=== PATIENT | female | born 1945 | race Caucasian/White ===

== ENCOUNTER 2016-09-17 12:04 | Emergency (ER) | payer MEDICARE, MEDICAID ==
[2009-02-26 21:52] VITALS: BP 132/80
[~2016-09-17] VITALS: Ht 144.8 cm; Wt 56.8 kg
[~2016-09-17 12:04] MED LIST: AMBIEN 5MG TABLE5 MG PO; AMITIZA 8MCG8 MCG PO; AMITIZA24 MCG PO; ASPIRIN E.C. 8181 MG PO; ATIVAN0.5 MG PO; ATORVASTATIN PO; BACTRIM 400 MG-1 TAB PO; CARAFATE 1GM1 G PO; CEFTIN 250250 MG/TAB PO; CEFTIN500 MG PO; CRESTOR PO; CRESTOR5 MG PO; DARVOCET-N-101 UDTAB PO; DESYREL 100MG100 MG PO; DESYREL 50MG50 MG PO; DESYREL PO; ESCITALOPRAM PO; FLEXERIL 1010 MG/TAB PO; FLEXERIL10 MG PO; FLEXERIL5 MG PO; GLUCOPHAGE PO; GLUCOPHAGE500 MG/TAB PO; HEART MED; LANTUS100 U/ML SC; LANTUS100 U/ML SQ; LEVAQUIN 2250 MG/TAB PO; LEVAQUIN 750MG750 M1 PO; LEVEMIR SC; LORTAB 5/500 501 TAB PO; MACROBID 1100 MG/CAP PO; METRONIDAZOLE250 MG PO; MOBIC 7.5MG7.5 MG PO; NATURAL E400 IU PO; NEXIUM 20MG20 MG PO; NEXIUM 40MG40 MG PO; NIRAVAM1 MG PO; NORCO 325 MG-51 TAB PO; OMNICEF 300MG300 MG PO; ORAXYL20 MG PO; PERCOCET 325 MG1 TA2 PO; PERCOCET 5/321 UDTAB PO; PERCR 7.5 PO; PULMICORT0.25 MG/2; PULMICORT0.5 MG/21 IH; PYRIDIUM 100MG100 MG PO; PYRIDIUM200 M1 PO; RT SPIRIVA18 MCG IH; SINGULAIR 110 MG/TAB PO; SINGULAIR PO; SINGULAIR10 MG PO; SPIRIVA INH IH; TYLENOL 325MG325 MG PO; ULTRAM 50MG TAB50 MG PO; VALIUM 2MG T2 MG/TAB PO; VENTOLIN0.09 MG IH; VICODIN 5/5001 UDTAB PO; VITAMIN C BUFF500 MG PO; VITAMIN C500 MG PO; VITAMIN E 400 U4001 PO; XANAX .25M0.25 MG/TA PO; XANAX 0.5MG0.5 MG PO; XANAX 1MG1 MG PO; ZITHROMAX 250M250 MG PO; ZOFRAN ODT4 MG PO; ZOFRAN4 M1 PO; ZOFRAN4 MG PO; ZOLPIDEM5 MG PO; [UNRECOGNIZED DRUG - OTHER]
[2016-09-17 12:08] VITALS: BP 140/74; TEMP 98.2
[2016-09-17] MEDS ORDERED: NORCO 325 MG-51 TAB PO (12:37)
[2016-09-17 13:34] LABS: BASO # 0.1 (0.0-0.2); BASO % 1.2 % (0.0-2.0); EOS # 0.1 (0.0-0.7); EOS % 0.8 % (0-4.0); GRAN # 6.7 (1.4-6.5); GRAN % 77.5 % (42.2-75.2); HEMATOCRIT 43.2 % (37.0-47.0); HEMOGLOBIN 13.8 g/dl (12.5-16.0); LYMPH # 1.3 (1.2-3.4); LYMPH % 14.7 % (20.0-51.0); MEAN CELL VOLUME 89 fl (80.0-100.0); MEAN CORPUSCULAR HEMOGLOBIN 29 pg (27.0-31.0); MEAN CORPUSCULAR HGB CONC 32 g/dl (33.0-37.0); MEAN PLATELET VOLUME 9.1 fl (7.4-10.4); MONO # 0.5 (0.1-0.6); MONO % 5.6 % (1.7-9.3); PLATELET COUNT 340 K/mm3 (130-400); RED BLOOD COUNT 4.85 M/mm3 (4.10-5.30); REDCELL DISTRIBUTION WIDTH-CV 12.8 % (11.5-14.5); WHITE BLOOD COUNT 8.7 K/mm3 (4.8-10.8)
[2016-09-17 13:51] LABS: ADJUSTED CALCIUM 9.9 mg/dL (8.4-10.2); BILIRUBIN,TOTAL 0.7 mg/dL (0.0-1.0); CALCIUM 9.9 mg/dL (8.4-10.2); CREATININE, serum 1.05 mg/dL (0.52-1.25); POTASSIUM 4.2 mmol/L (3.4-5.0); TOTAL PROTEIN 7.5 gm/dL (6.4-8.2)
[2016-09-17 15:30] LABS: PH 6 (5-8); SQUAMOUS EPITHELIAL 0-2 /hpf; URINE APPEARANCE Clear; URINE BACTERIA None Seen /hpf; URINE BILIRUBIN Negative (NEGATIVE); URINE BLOOD Negative (NEGATIVE); URINE COLOR Straw; URINE GLUCOSE Negative (NEGATIVE); URINE KETONE Negative (NEGATIVE); URINE RBC 0-2 /hpf; URINE UROBILINOGEN Negative (NEGATIVE); URINE WBC 0-2 /hpf
[2016-09-17 16:00] VITALS: PULSE 91
== END 2016-09-17 16:02 | disposition home or self-care (01) ==
LOC: COL.ER 12:04
PROVIDERS: Nurse Practitioner
DX: R10.84 Generalized abdominal pain (principal); E11.9 Type 2 diabetes mellitus without complications; Z79.84 Long term (current) use of oral hypoglycemic drugs; J44.9 Chronic obstructive pulmonary disease, unspecified; Z87.891 Personal history of nicotine dependence; F41.9 Anxiety disorder, unspecified; F32.9 Major depressive disorder, single episode, unspecified

== ENCOUNTER 2016-09-26 14:16 | Emergency (ER) | payer MEDICARE, MEDICAID ==
[2009-02-26 21:52] VITALS: BP 132/80
[~2016-09-26] VITALS: Ht 144.8 cm; Wt 58.6 kg
[2016-09-26 14:17] VITALS: TEMP 98.7
[2016-09-26 15:54] VITALS: BP 139/73; PULSE 79
== END 2016-09-26 15:54 | disposition home or self-care (01) ==
LOC: COL.ER 14:16
DX: R00.0 Tachycardia, unspecified (principal); F41.9 Anxiety disorder, unspecified; E11.9 Type 2 diabetes mellitus without complications; Z79.4 Long term (current) use of insulin

== ENCOUNTER 2016-10-03 13:55 | Emergency (ER) | payer MEDICARE, MEDICAID ==
[2009-02-26 21:52] VITALS: BP 132/80
[~2016-10-03] VITALS: Ht 144.8 cm; Wt 58.2 kg
[2016-10-03 14:08] VITALS: TEMP 98.3
[2016-10-03 15:51] LABS: BASO # 0.1 (0.0-0.2); BASO % 1.2 % (0.0-2.0); EOS # 0.1 (0.0-0.7); EOS % 0.9 % (0-4.0); GRAN # 7.2 (1.4-6.5); HEMATOCRIT 44.8 % (37.0-47.0); HEMOGLOBIN 14.3 g/dl (12.5-16.0); LYMPH # 1.3 (1.2-3.4); LYMPH % 14.1 % (20.0-51.0); MEAN CELL VOLUME 90 fl (80.0-100.0); MEAN CORPUSCULAR HEMOGLOBIN 29 pg (27.0-31.0); MEAN CORPUSCULAR HGB CONC 32 g/dl (33.0-37.0); MEAN PLATELET VOLUME 9.1 fl (7.4-10.4); MONO # 0.5 (0.1-0.6); MONO % 5.5 % (1.7-9.3); PLATELET COUNT 331 K/mm3 (130-400); RED BLOOD COUNT 4.98 M/mm3 (4.10-5.30); REDCELL DISTRIBUTION WIDTH-CV 12.6 % (11.5-14.5); WHITE BLOOD COUNT 9.3 K/mm3 (4.8-10.8)
[2016-10-03 15:55] LABS: PH 7 (5-8); SQUAMOUS EPITHELIAL None Seen /hpf; URINE APPEARANCE Clear; URINE BACTERIA None Seen /hpf; URINE BILIRUBIN Negative (NEGATIVE); URINE BLOOD Negative (NEGATIVE); URINE COLOR Colorless; URINE GLUCOSE Negative (NEGATIVE); URINE KETONE Negative (NEGATIVE); URINE RBC 0-2 /hpf; URINE UROBILINOGEN Negative (NEGATIVE); URINE WBC 0-2 /hpf
[2016-10-03 16:01] LABS: ADJUSTED CALCIUM 9.5 mg/dL (8.4-10.2); ALANINE AMINOTRANSFERASE 38 U/L (9-52); ALBUMIN 4.1 gm/dL (3.5-5.0); ALKALINE PHOSPHATASE 136 U/L (50-136); ANION GAP 8 mmol/L (7-16); BILIRUBIN,TOTAL 0.8 mg/dL (0.0-1.0); BLOOD UREA NITROGEN 10 mg/dL (7-17); CALCIUM 9.6 mg/dL (8.4-10.2); CARBON DIOXIDE 29 mmol/L (22-30); CHLORIDE 102 mmol/L (98-107); CREATININE, serum 1.07 mg/dL (0.52-1.25); GLUCOSE 99 mg/dL (74-106); MAGNESIUM 2.2 mg/dL (1.6-2.3); SODIUM 139 mmol/L (137-145); TOTAL PROTEIN 7.8 gm/dL (6.4-8.2)
[2016-10-03 16:18] LABS: TROPONIN-I < 0.012 ng/mL (0.000-0.034)
[2016-10-03 16:52] VITALS: BP 164/90; PULSE 80
== END 2016-10-03 17:00 | disposition home or self-care (01) ==
LOC: COL.ER 13:55
PROVIDERS: Emergency Medicine
DX: F41.9 Anxiety disorder, unspecified (principal); F32.9 Major depressive disorder, single episode, unspecified; E11.9 Type 2 diabetes mellitus without complications; R42 Dizziness and giddiness; R11.0 Nausea

== ENCOUNTER 2016-10-04 19:11 | Emergency (ER) | payer MEDICARE, MEDICAID ==
[2009-02-26 21:52] VITALS: BP 132/80
[~2016-10-04] VITALS: Ht 144.8 cm; Wt 58.6 kg
[~2016-10-04 19:11] MED LIST changes: -ANUSOL HC CREAM30 GM TP; -ATARAX 10MG10 MG/TAB PO; -ATARAX 25MG25 MG/TAB PO; -BENADRYL ITCH28.3 G1 TP; -BENADRYL25 M2 PO; -CIPRO 500MG TA500 MG PO; -CLARITIN 1010 MG/TAB PO; -DOXYCYCLINE 10100 MG PO; -NITROSTAT0.3 MG SL; -PREDNISONE20 MG PO; -PRILOSEC 20MG20 MG PO; -VITAMIN D 1001000 IU PO; -VITAMIN D31000 IU PO
[2016-10-04 19:15] VITALS: TEMP 98.6
[2016-10-04 19:46] VITALS: BP 155/62; PULSE 80
== END 2016-10-04 19:46 | disposition home or self-care (01) ==
LOC: COL.ER 19:11
DX: G43.909 Migraine, unspecified, not intractable, without status migrainosus (principal); E11.9 Type 2 diabetes mellitus without complications; Z79.4 Long term (current) use of insulin
CPT/HCPCS: J1885; J2550

== ENCOUNTER → 2016-10-04 | Emergency (ER) | payer MEDICARE, MEDICAID ==
[2009-02-26 21:52] VITALS: BP 132/80
[~2016-10-04] VITALS: Ht 144.8 cm; Wt 58.2 kg
[~2016-10-04] MED LIST changes: +ANUSOL HC CREAM30 GM TP; +ATARAX 10MG10 MG/TAB PO; +ATARAX 25MG25 MG/TAB PO; +BENADRYL ITCH28.3 G1 TP; +BENADRYL25 M2 PO; +CIPRO 500MG TA500 MG PO; +CLARITIN 1010 MG/TAB PO; +DOXYCYCLINE 10100 MG PO; +NITROSTAT0.3 MG SL; +PREDNISONE20 MG PO; +PRILOSEC 20MG20 MG PO; +VITAMIN D 1001000 IU PO; +VITAMIN D31000 IU PO
[2016-10-04 12:37] VITALS: BP 160/87; PULSE 87
== END | disposition home or self-care (01) ==
LOC: COL.ER 07:16
DX: G89.29 Other chronic pain (principal); F41.9 Anxiety disorder, unspecified; M54.89 Other dorsalgia; E11.9 Type 2 diabetes mellitus without complications; I10 Essential (primary) hypertension; Z87.891 Personal history of nicotine dependence; Z79.4 Long term (current) use of insulin
CPT/HCPCS: J1885

== ENCOUNTER 2016-10-15 16:04 | Emergency (ER) | payer MEDICARE, MEDICAID ==
[2009-02-26 21:52] VITALS: BP 132/80
[~2016-10-15] VITALS: Ht 144.8 cm; Wt 58.2 kg
[2016-10-15 16:08] VITALS: TEMP 97
[2016-10-15 16:51] LABS: PH 6 (5-8); SQUAMOUS EPITHELIAL 0-2 /hpf; URINE APPEARANCE Cloudy; URINE BACTERIA Rare /hpf; URINE BILIRUBIN Negative (NEGATIVE); URINE BLOOD 2+ (NEGATIVE); URINE COLOR Yellow; URINE GLUCOSE Negative (NEGATIVE); URINE KETONE Negative (NEGATIVE); URINE RBC 0-2 /hpf; URINE UROBILINOGEN Negative (NEGATIVE); URINE WBC >50 /hpf
[2016-10-15 17:52] LABS: BASO # 0.1 (0.0-0.2); BASO % 0.9 % (0.0-2.0); EOS # 0.2 (0.0-0.7); EOS % 1.9 % (0-4.0); GRAN # 7.6 (1.4-6.5); GRAN % 73.2 % (42.2-75.2); HEMOGLOBIN 13.5 g/dl (12.5-16.0); LYMPH # 1.7 (1.2-3.4); LYMPH % 16.6 % (20.0-51.0); MEAN CELL VOLUME 90 fl (80.0-100.0); MEAN CORPUSCULAR HEMOGLOBIN 29 pg (27.0-31.0); MEAN CORPUSCULAR HGB CONC 32 g/dl (33.0-37.0); MONO # 0.7 (0.1-0.6); PLATELET COUNT 321 K/mm3 (130-400); RED BLOOD COUNT 4.69 M/mm3 (4.10-5.30); REDCELL DISTRIBUTION WIDTH-CV 12.6 % (11.5-14.5); WHITE BLOOD COUNT 10.3 K/mm3 (4.8-10.8)
[2016-10-15 18:09] LABS: ADJUSTED CALCIUM 9.4 mg/dL (8.4-10.2); ALBUMIN 3.7 gm/dL (3.5-5.0); BILIRUBIN,TOTAL 0.7 mg/dL (0.0-1.0); C-REACTIVE PROTEIN 0.9 mg/dL (0.0-0.9); CALCIUM 9.2 mg/dL (8.4-10.2); CREATININE, serum 1.18 mg/dL (0.52-1.25); POTASSIUM 3.8 mmol/L (3.4-5.0); TOTAL PROTEIN 7.1 gm/dL (6.4-8.2)
[2016-10-15] MEDS ORDERED: PYRIDIUM200 M1 PO (18:54)
[2016-10-15] MEDS ORDERED: OMNICEF 300MG300 MG PO (18:54)
[2016-10-15 19:34] VITALS: BP 132/70; PULSE 80
== END 2016-10-15 19:35 | disposition home or self-care (01) ==
LOC: COL.ER 16:04
PROVIDERS: Emergency Medicine
DX: R10.31 Right lower quadrant pain (principal); N39.0 Urinary tract infection, site not specified; B96.20 Unspecified Escherichia coli [E. coli] as the cause of diseases classified elsewhere; E11.9 Type 2 diabetes mellitus without complications; Z79.4 Long term (current) use of insulin
CPT/HCPCS: J0696; J2270; J2405; J7030; Q9967

== ENCOUNTER 2016-10-17 12:08 | Emergency (ER) | payer MEDICARE, MEDICAID ==
[2009-02-26 21:52] VITALS: BP 132/80
[~2016-10-17] VITALS: Ht 144.8 cm; Wt 59.0 kg
[2016-10-17 12:13] VITALS: BP 131/59; PULSE 91; TEMP 98.4
== END 2016-10-17 13:50 | disposition home or self-care (01) ==
LOC: COL.ER 12:08
DX: M17.12 Unilateral primary osteoarthritis, left knee (principal); E11.9 Type 2 diabetes mellitus without complications; Z79.4 Long term (current) use of insulin

== ENCOUNTER 2016-10-25 11:38 | Emergency (ER) | payer MEDICARE, MEDICAID ==
[2009-02-26 21:52] VITALS: BP 132/80
[~2016-10-25] VITALS: Ht 144.8 cm; Wt 58.2 kg
[2016-10-25 11:39] VITALS: TEMP 98.3
[2016-10-25 12:23] LABS: BASO # 0.1 (0.0-0.2); BASO % 1.1 % (0.0-2.0); EOS # 0.1 (0.0-0.7); EOS % 1.4 % (0-4.0); GRAN # 6.5 (1.4-6.5); GRAN % 76.9 % (42.2-75.2); HEMATOCRIT 45.3 % (37.0-47.0); HEMOGLOBIN 14.5 g/dl (12.5-16.0); LYMPH # 1.3 (1.2-3.4); LYMPH % 14.9 % (20.0-51.0); MEAN CELL VOLUME 90 fl (80.0-100.0); MEAN CORPUSCULAR HEMOGLOBIN 29 pg (27.0-31.0); MEAN CORPUSCULAR HGB CONC 32 g/dl (33.0-37.0); MEAN PLATELET VOLUME 9.1 fl (7.4-10.4); MONO # 0.5 (0.1-0.6); MONO % 5.5 % (1.7-9.3); PLATELET COUNT 333 K/mm3 (130-400); RED BLOOD COUNT 5.04 M/mm3 (4.10-5.30); REDCELL DISTRIBUTION WIDTH-CV 12.8 % (11.5-14.5); WHITE BLOOD COUNT 8.4 K/mm3 (4.8-10.8)
[2016-10-25 12:37] LABS: ADJUSTED CALCIUM 9.7 mg/dL (8.4-10.2); ALANINE AMINOTRANSFERASE 24 U/L (9-52); ALBUMIN 3.9 gm/dL (3.5-5.0); ALKALINE PHOSPHATASE 116 U/L (50-136); ANION GAP 8 mmol/L (7-16); BILIRUBIN,TOTAL 0.8 mg/dL (0.0-1.0); BLOOD UREA NITROGEN 10 mg/dL (7-17); CALCIUM 9.6 mg/dL (8.4-10.2); CARBON DIOXIDE 32 mmol/L (22-30); CHLORIDE 100 mmol/L (98-107); CREATININE, serum 0.97 mg/dL (0.52-1.25); GLUCOSE 172 mg/dL (74-106); LIPASE 15 U/L (23-300); POTASSIUM 4.2 mmol/L (3.4-5.0); SODIUM 139 mmol/L (137-145); TOTAL PROTEIN 7.5 gm/dL (6.4-8.2)
[2016-10-25 12:54] LABS: TROPONIN-I < 0.012 ng/mL (0.000-0.034)
[2016-10-25 13:01] LABS: B-TYPE NATRIURETIC PEPTIDE 100 pg/mL (0-125)
[2016-10-25] MEDS ORDERED: CARAFATE 1GM1 G PO (13:31)
[2016-10-25 14:40] VITALS: BP 150/84; PULSE 96
[2016-10-26] MEDS ORDERED: VITAMIN D31000 IU PO (08:35)
[2016-10-26] MEDS ORDERED: NITROSTAT0.3 MG SL (13:20)
== END 2016-10-25 15:14 | disposition home or self-care (01) ==
LOC: COL.ER 11:38
PROVIDERS: Emergency Medicine
DX: R10.13 Epigastric pain (principal); R07.89 Other chest pain; K21.9 Gastro-esophageal reflux disease without esophagitis; E11.9 Type 2 diabetes mellitus without complications; J44.9 Chronic obstructive pulmonary disease, unspecified

== ENCOUNTER 2016-10-26 08:06 | Emergency (ER) | payer MEDICARE, MEDICAID ==
[2009-02-26 21:52] VITALS: BP 132/80
[~2016-10-26] VITALS: Ht 22.9 cm; Wt 58.2 kg
[2016-10-26 08:19] VITALS: BP 139/64
[2016-10-26] MEDS ORDERED: VITAMIN D31000 IU PO (08:35)
[2016-10-26 09:00] LABS: HEMATOCRIT 43.4 % (37.0-47.0); MEAN CELL VOLUME 89 fl (80.0-100.0); MEAN CORPUSCULAR HEMOGLOBIN 29 pg (27.0-31.0); MEAN CORPUSCULAR HGB CONC 32 g/dl (33.0-37.0); MEAN PLATELET VOLUME 8.9 fl (7.4-10.4); PLATELET COUNT 272 K/mm3 (130-400); RED BLOOD COUNT 4.86 M/mm3 (4.10-5.30); REDCELL DISTRIBUTION WIDTH-CV 12.6 % (11.5-14.5); WHITE BLOOD COUNT 11.9 K/mm3 (4.8-10.8)
[2016-10-26 09:08] LABS: ADD PATHOLOGY DIFF REVIEW NO
[2016-10-26 09:34] LABS: C-REACTIVE PROTEIN 0.8 mg/dL (0.0-0.9)
[2016-10-26 09:41] LABS: TROPONIN-I 0.029 ng/mL (0.000-0.034)
[2016-10-26 10:03] LABS: BAND 6 % (0-10); NEUTROPHILS 85 % (42.0-75.2); PLATELET ESTIMATE NORMAL (NORMAL); TOTAL CELLS COUNTED 100
[2016-10-26] MEDS ORDERED: NITROSTAT0.3 MG SL (13:20)
[2016-10-26 13:40] VITALS: PULSE 94
== END 2016-10-26 13:40 | disposition home or self-care (01) ==
LOC: COL.ER 08:06
PROVIDERS: Emergency Medicine
DX: R00.2 Palpitations (principal); R07.9 Chest pain, unspecified; I10 Essential (primary) hypertension; E11.9 Type 2 diabetes mellitus without complications; Z87.891 Personal history of nicotine dependence

== ENCOUNTER 2016-11-05 18:37 | Emergency (ER) | payer MEDICARE, MEDICAID ==
[2009-02-26 21:52] VITALS: BP 132/80
[~2016-11-05] VITALS: Ht 144.8 cm; Wt 58.6 kg
[~2016-11-05 18:37] MED LIST changes: +NITROSTAT0.3 MG SL; +VITAMIN D31000 IU PO
[2016-11-05 18:42] VITALS: TEMP 97
[2016-11-05 20:04] VITALS: BP 164/71; PULSE 85
== END 2016-11-05 20:04 | disposition home or self-care (01) ==
LOC: COL.ER 18:37
DX: R00.2 Palpitations (principal); I25.10 Atherosclerotic heart disease of native coronary artery without angina pectoris; E11.9 Type 2 diabetes mellitus without complications; F41.9 Anxiety disorder, unspecified; L29.9 Pruritus, unspecified; M54.9 Dorsalgia, unspecified; Z79.4 Long term (current) use of insulin

== ENCOUNTER 2016-11-06 09:52 | Emergency (ER) | payer MEDICARE, MEDICAID ==
[2009-02-26 21:52] VITALS: BP 132/80
[~2016-11-06] VITALS: Ht 147.3 cm; Wt 58.2 kg
[2016-11-06 10:01] VITALS: PULSE 84; TEMP 98.3
[2016-11-06 10:38] LABS: PH 6 (5-8); SQUAMOUS EPITHELIAL 0-2 /hpf; URINE APPEARANCE Clear; URINE BACTERIA None Seen /hpf; URINE BILIRUBIN Negative (NEGATIVE); URINE BLOOD Negative (NEGATIVE); URINE COLOR Straw; URINE GLUCOSE Negative (NEGATIVE); URINE KETONE Negative (NEGATIVE); URINE RBC 0-2 /hpf; URINE UROBILINOGEN Negative (NEGATIVE); URINE WBC 0-2 /hpf
[2016-11-06 11:20] LABS: BASO # 0.1 (0.0-0.2); BASO % 1.4 % (0.0-2.0); EOS # 0.2 (0.0-0.7); EOS % 2.2 % (0-4.0); GRAN % 69.7 % (42.2-75.2); HEMATOCRIT 41.8 % (37.0-47.0); HEMOGLOBIN 13.4 g/dl (12.5-16.0); LYMPH # 1.4 (1.2-3.4); LYMPH % 20.1 % (20.0-51.0); MEAN CELL VOLUME 90 fl (80.0-100.0); MEAN CORPUSCULAR HEMOGLOBIN 29 pg (27.0-31.0); MEAN CORPUSCULAR HGB CONC 32 g/dl (33.0-37.0); MEAN PLATELET VOLUME 8.8 fl (7.4-10.4); MONO # 0.5 (0.1-0.6); MONO % 6.5 % (1.7-9.3); PLATELET COUNT 313 K/mm3 (130-400); RED BLOOD COUNT 4.63 M/mm3 (4.10-5.30); REDCELL DISTRIBUTION WIDTH-CV 12.7 % (11.5-14.5); WHITE BLOOD COUNT 7.1 K/mm3 (4.8-10.8)
[2016-11-06 11:57] VITALS: BP 139/67
== END 2016-11-06 12:01 | disposition home or self-care (01) ==
LOC: COL.ER 09:52
PROVIDERS: Emergency Medicine
DX: R10.31 Right lower quadrant pain (principal); R10.32 Left lower quadrant pain; G89.29 Other chronic pain; E11.9 Type 2 diabetes mellitus without complications; I10 Essential (primary) hypertension

== ENCOUNTER 2016-11-11 10:13 | Emergency (ER) | payer MEDICARE, MEDICAID ==
[2009-02-26 21:52] VITALS: BP 132/80
[~2016-11-11] VITALS: Ht 144.8 cm; Wt 58.6 kg
[2016-11-11 10:16] VITALS: TEMP 97.7
[2016-11-11 11:17] VITALS: BP 157/86; PULSE 93
== END 2016-11-11 11:17 | disposition home or self-care (01) ==
LOC: COL.ER 10:13
DX: R10.31 Right lower quadrant pain (principal); R10.32 Left lower quadrant pain; R19.7 Diarrhea, unspecified; E11.9 Type 2 diabetes mellitus without complications; Z79.84 Long term (current) use of oral hypoglycemic drugs; I10 Essential (primary) hypertension; Z87.891 Personal history of nicotine dependence; G89.29 Other chronic pain

== ENCOUNTER 2016-11-20 11:04 | Emergency (ER) | payer MEDICARE, MEDICAID ==
[2009-02-26 21:52] VITALS: BP 132/80
[~2016-11-20] VITALS: Ht 144.8 cm; Wt 58.2 kg
[2016-11-20 11:20] VITALS: BP 168/80; PULSE 87; TEMP 98.2
== END 2016-11-20 12:43 | disposition home or self-care (01) ==
LOC: COL.ER 11:04
DX: R21 Rash and other nonspecific skin eruption (principal); L29.9 Pruritus, unspecified; E11.9 Type 2 diabetes mellitus without complications; Z79.4 Long term (current) use of insulin

== ENCOUNTER 2016-11-20 22:52 | Emergency (ER) | payer MEDICARE, MEDICAID ==
[2009-02-26 21:52] VITALS: BP 132/80
[~2016-11-20] VITALS: Ht 170.2 cm; Wt 58.6 kg
[2016-11-20 23:05] VITALS: BP 170/68; TEMP 97.8
[2016-11-20 23:30] VITALS: PULSE 66
== END 2016-11-20 23:32 | disposition home or self-care (01) ==
LOC: COL.ER 22:52
DX: L25.8 Unspecified contact dermatitis due to other agents (principal); E11.9 Type 2 diabetes mellitus without complications; I10 Essential (primary) hypertension; Z87.891 Personal history of nicotine dependence; Z79.4 Long term (current) use of insulin

== ENCOUNTER 2016-11-23 11:35 | Emergency (ER) | payer MEDICARE, MEDICAID ==
[2009-02-26 21:52] VITALS: BP 132/80
[~2016-11-23] VITALS: Ht 144.8 cm; Wt 58.6 kg
[2016-11-23 11:45] VITALS: TEMP 98.3
[2016-11-23 12:48] LABS: BASO # 0.1 (0.0-0.2); BASO % 1.2 % (0.0-2.0); EOS # 0.1 (0.0-0.7); EOS % 1.4 % (0-4.0); GRAN % 73.6 % (42.2-75.2); HEMATOCRIT 43.1 % (37.0-47.0); HEMOGLOBIN 13.9 g/dl (12.5-16.0); LYMPH # 1.6 (1.2-3.4); LYMPH % 17.1 % (20.0-51.0); MEAN CELL VOLUME 89 fl (80.0-100.0); MEAN CORPUSCULAR HEMOGLOBIN 29 pg (27.0-31.0); MEAN CORPUSCULAR HGB CONC 32 g/dl (33.0-37.0); MONO # 0.6 (0.1-0.6); MONO % 6.4 % (1.7-9.3); PLATELET COUNT 310 K/mm3 (130-400); RED BLOOD COUNT 4.83 M/mm3 (4.10-5.30); REDCELL DISTRIBUTION WIDTH-CV 12.9 % (11.5-14.5); WHITE BLOOD COUNT 9.5 K/mm3 (4.8-10.8)
[2016-11-23 13:22] LABS: ADJUSTED CALCIUM 10.2 mg/dL (8.4-10.2); BILIRUBIN,TOTAL 0.7 mg/dL (0.0-1.0); CALCIUM 10.2 mg/dL (8.4-10.2); CREATININE, serum 0.94 mg/dL (0.52-1.25); POTASSIUM 4.7 mmol/L (3.4-5.0); TOTAL PROTEIN 7.5 gm/dL (6.4-8.2)
[2016-11-23 15:33] VITALS: BP 144/78; PULSE 86
== END 2016-11-23 15:44 | disposition home or self-care (01) ==
LOC: COL.ER 11:35
PROVIDERS: Family Medicine
DX: R07.9 Chest pain, unspecified (principal); F41.9 Anxiety disorder, unspecified; R21 Rash and other nonspecific skin eruption; I10 Essential (primary) hypertension; E11.9 Type 2 diabetes mellitus without complications; Z79.4 Long term (current) use of insulin

== ENCOUNTER 2016-11-24 10:25 | Emergency (ER) | payer MEDICARE, MEDICAID ==
[2009-02-26 21:52] VITALS: BP 132/80
[~2016-11-24] VITALS: Ht 144.8 cm; Wt 58.6 kg
[2016-11-24 13:34] VITALS: BP 169/76; PULSE 91
== END 2016-11-24 13:35 | disposition home or self-care (01) ==
LOC: COL.ER 10:25
DX: R07.89 Other chest pain (principal); R53.81 Other malaise

== ENCOUNTER 2016-11-27 22:18 | Emergency (ER) | payer MEDICARE, MEDICAID ==
[2009-02-26 21:52] VITALS: BP 132/80
[~2016-11-27] VITALS: Ht 144.8 cm; Wt 58.6 kg
[2016-11-27 22:42] VITALS: BP 159/77; TEMP 97.6
[2016-11-28] MEDS ORDERED: ATARAX 10MG10 MG/TAB PO (00:34)
[2016-11-28 00:42] VITALS: PULSE 74
== END 2016-11-28 00:41 | disposition home or self-care (01) ==
LOC: COL.ER 22:18
DX: L25.9 Unspecified contact dermatitis, unspecified cause (principal); E11.9 Type 2 diabetes mellitus without complications; I10 Essential (primary) hypertension; Z79.4 Long term (current) use of insulin

== ENCOUNTER 2016-12-12 13:33 | Emergency (ER) | payer MEDICARE, MEDICAID ==
[2009-02-26 21:52] VITALS: BP 132/80
[~2016-12-12] VITALS: Ht 144.8 cm; Wt 58.2 kg
[~2016-12-12 13:33] MED LIST changes: +ATARAX 10MG10 MG/TAB PO
[2016-12-12 16:20] LABS: BASO # 0.1 (0.0-0.2); BASO % 1.4 % (0.0-2.0); EOS # 0.1 (0.0-0.7); EOS % 1.2 % (0-4.0); GRAN # 6.9 (1.4-6.5); GRAN % 76.6 % (42.2-75.2); HEMATOCRIT 48.3 % (37.0-47.0); HEMOGLOBIN 15.4 g/dl (12.5-16.0); LYMPH # 1.3 (1.2-3.4); LYMPH % 14.8 % (20.0-51.0); MEAN CELL VOLUME 90 fl (80.0-100.0); MEAN CORPUSCULAR HEMOGLOBIN 29 pg (27.0-31.0); MEAN CORPUSCULAR HGB CONC 32 g/dl (33.0-37.0); MEAN PLATELET VOLUME 8.7 fl (7.4-10.4); MONO # 0.5 (0.1-0.6); MONO % 5.7 % (1.7-9.3); PLATELET COUNT 356 K/mm3 (130-400); RED BLOOD COUNT 5.37 M/mm3 (4.10-5.30); REDCELL DISTRIBUTION WIDTH-CV 12.8 % (11.5-14.5)
[2016-12-12 16:30] LABS: PH 6 (5-8); SQUAMOUS EPITHELIAL 0-2 /hpf; URINE APPEARANCE Clear; URINE BACTERIA Rare /hpf; URINE BILIRUBIN Negative (NEGATIVE); URINE BLOOD Negative (NEGATIVE); URINE COLOR Straw; URINE GLUCOSE Negative (NEGATIVE); URINE KETONE Negative (NEGATIVE); URINE RBC 0-2 /hpf; URINE UROBILINOGEN Negative (NEGATIVE); URINE WBC 0-2 /hpf
[2016-12-12 16:38] LABS: ADJUSTED CALCIUM 9.5 mg/dL (8.4-10.2); ALANINE AMINOTRANSFERASE 43 U/L (9-52); ALBUMIN 4.5 gm/dL (3.5-5.0); ALKALINE PHOSPHATASE 152 U/L (50-136); ANION GAP 12 mmol/L (7-16); BILIRUBIN,TOTAL 0.7 mg/dL (0.0-1.0); BLOOD UREA NITROGEN 14 mg/dL (7-17); CALCIUM 9.9 mg/dL (8.4-10.2); CARBON DIOXIDE 30 mmol/L (22-30); CHLORIDE 100 mmol/L (98-107); CREATININE, serum 1.04 mg/dL (0.52-1.25); GLUCOSE 110 mg/dL (74-106); LIPASE 37 U/L (23-300); SODIUM 143 mmol/L (137-145)
[2016-12-12 16:52] LABS: C-REACTIVE PROTEIN < 0.5 mg/dL (0.0-0.9); TROPONIN-I < 0.012 ng/mL (0.000-0.034)
[2016-12-12 17:55] VITALS: BP 159/80; PULSE 83; TEMP 97.5
== END 2016-12-12 17:56 | disposition home or self-care (01) ==
LOC: COL.ER 13:33
PROVIDERS: Emergency Medicine
DX: R07.9 Chest pain, unspecified (principal); G89.29 Other chronic pain; I10 Essential (primary) hypertension; E11.9 Type 2 diabetes mellitus without complications; I25.2 Old myocardial infarction; Z87.11 Personal history of peptic ulcer disease; Z79.4 Long term (current) use of insulin

== ENCOUNTER 2016-12-16 20:34 | Emergency (ER) | payer MEDICARE, MEDICAID ==
[2009-02-26 21:52] VITALS: BP 132/80
[~2016-12-16] VITALS: Ht 144.8 cm; Wt 55.9 kg
[2016-12-16 20:35] VITALS: TEMP 98.2
[2016-12-16 20:56] LABS: BASO # 0.1 (0.0-0.2); BASO % 1.1 % (0.0-2.0); EOS # 0.1 (0.0-0.7); EOS % 0.7 % (0-4.0); GRAN # 9.9 (1.4-6.5); GRAN % 81.1 % (42.2-75.2); HEMATOCRIT 41.9 % (37.0-47.0); LYMPH # 1.3 (1.2-3.4); LYMPH % 10.8 % (20.0-51.0); MEAN CELL VOLUME 88 fl (80.0-100.0); MEAN CORPUSCULAR HEMOGLOBIN 29 pg (27.0-31.0); MEAN CORPUSCULAR HGB CONC 33 g/dl (33.0-37.0); MEAN PLATELET VOLUME 8.9 fl (7.4-10.4); MONO # 0.7 (0.1-0.6); PLATELET COUNT 348 K/mm3 (130-400); RED BLOOD COUNT 4.79 M/mm3 (4.10-5.30); REDCELL DISTRIBUTION WIDTH-CV 12.9 % (11.5-14.5); WHITE BLOOD COUNT 12.3 K/mm3 (4.8-10.8)
[2016-12-16 21:06] LABS: ADJUSTED CALCIUM 9.3 mg/dL (8.4-10.2); ALANINE AMINOTRANSFERASE 37 U/L (9-52); ALBUMIN 4.1 gm/dL (3.5-5.0); ALKALINE PHOSPHATASE 129 U/L (50-136); ANION GAP 10 mmol/L (7-16); BILIRUBIN,TOTAL 0.6 mg/dL (0.0-1.0); BLOOD UREA NITROGEN 16 mg/dL (7-17); CALCIUM 9.4 mg/dL (8.4-10.2); CARBON DIOXIDE 27 mmol/L (22-30); CHLORIDE 100 mmol/L (98-107); CREATININE, serum 1.03 mg/dL (0.52-1.25); GLUCOSE 163 mg/dL (74-106); SODIUM 137 mmol/L (137-145); TOTAL PROTEIN 7.1 gm/dL (6.4-8.2)
[2016-12-16 21:19] LABS: TROPONIN-I < 0.012 ng/mL (0.000-0.034)
[2016-12-16 21:58] VITALS: BP 148/79; PULSE 86
== END 2016-12-16 21:58 | disposition home or self-care (01) ==
LOC: COL.ER 20:34
PROVIDERS: Family Medicine
DX: E86.0 Dehydration (principal); F41.9 Anxiety disorder, unspecified; E11.9 Type 2 diabetes mellitus without complications; R07.89 Other chest pain; Z79.4 Long term (current) use of insulin
CPT/HCPCS: J7030

== ENCOUNTER 2016-12-18 13:28 | Emergency (ER) | payer MEDICARE, MEDICAID ==
[2009-02-26 21:52] VITALS: BP 132/80
[~2016-12-18] VITALS: Ht 144.8 cm; Wt 58.2 kg
[2016-12-18 13:30] VITALS: BP 163/90; PULSE 89; TEMP 98.3
== END 2016-12-18 14:09 | disposition home or self-care (01) ==
LOC: COL.ER 13:28
DX: R21 Rash and other nonspecific skin eruption (principal); E11.9 Type 2 diabetes mellitus without complications; Z79.84 Long term (current) use of oral hypoglycemic drugs; F41.9 Anxiety disorder, unspecified; F32.9 Major depressive disorder, single episode, unspecified

== ENCOUNTER 2017-01-01 12:03 | Emergency (ER) | payer MEDICARE, MEDICAID ==
[2009-02-26 21:52] VITALS: BP 132/80
[~2017-01-01] VITALS: Ht 144.8 cm; Wt 58.6 kg
[2017-01-01 12:06] VITALS: TEMP 97.9
[2017-01-01] MEDS ORDERED: CLARITIN 1010 MG/TAB PO (12:25)
[2017-01-01] MEDS ORDERED: BENADRYL25 M2 PO (12:26)
[2017-01-01 12:46] LABS: BASO # 0.1 (0.0-0.2); BASO % 1.2 % (0.0-2.0); EOS # 0.1 (0.0-0.7); EOS % 1.2 % (0-4.0); GRAN # 8.7 (1.4-6.5); GRAN % 81.3 % (42.2-75.2); HEMOGLOBIN 14.3 g/dl (12.5-16.0); LYMPH # 1.2 (1.2-3.4); LYMPH % 11.3 % (20.0-51.0); MEAN CELL VOLUME 90 fl (80.0-100.0); MEAN CORPUSCULAR HEMOGLOBIN 29 pg (27.0-31.0); MEAN CORPUSCULAR HGB CONC 33 g/dl (33.0-37.0); MEAN PLATELET VOLUME 8.8 fl (7.4-10.4); MONO # 0.5 (0.1-0.6); MONO % 4.6 % (1.7-9.3); PLATELET COUNT 325 K/mm3 (130-400); RED BLOOD COUNT 4.91 M/mm3 (4.10-5.30); REDCELL DISTRIBUTION WIDTH-CV 13.3 % (11.5-14.5); WHITE BLOOD COUNT 10.7 K/mm3 (4.8-10.8)
[2017-01-01 12:56] LABS: ADJUSTED CALCIUM 9.5 mg/dL (8.4-10.2); ALANINE AMINOTRANSFERASE 180 U/L (9-52); ALKALINE PHOSPHATASE 107 U/L (50-136); ANION GAP 11 mmol/L (7-16); BILIRUBIN,TOTAL 0.7 mg/dL (0.0-1.0); BLOOD UREA NITROGEN 19 mg/dL (7-17); CALCIUM 9.5 mg/dL (8.4-10.2); CARBON DIOXIDE 31 mmol/L (22-30); CHLORIDE 96 mmol/L (98-107); GLUCOSE 175 mg/dL (74-106); LIPASE 38 U/L (23-300); POTASSIUM 3.7 mmol/L (3.4-5.0); SODIUM 137 mmol/L (137-145)
[2017-01-01 13:08] LABS: TROPONIN-I < 0.012 ng/mL (0.000-0.034)
[2017-01-01 14:03] VITALS: BP 137/75; PULSE 87
== END 2017-01-01 15:05 | disposition home or self-care (01) ==
LOC: COL.ER 12:03
PROVIDERS: Emergency Medicine
DX: R21 Rash and other nonspecific skin eruption (principal); L29.9 Pruritus, unspecified; F41.9 Anxiety disorder, unspecified; R07.9 Chest pain, unspecified; E11.9 Type 2 diabetes mellitus without complications; Z79.84 Long term (current) use of oral hypoglycemic drugs

== ENCOUNTER 2017-01-02 10:09 | Emergency (ER) | payer MEDICARE, MEDICAID ==
[2009-02-26 21:52] VITALS: BP 132/80
[~2017-01-02] VITALS: Ht 144.8 cm; Wt 58.6 kg
[~2017-01-02 10:09] MED LIST changes: +BENADRYL25 M2 PO; +CLARITIN 1010 MG/TAB PO
[2017-01-02 10:12] VITALS: TEMP 97.5
[2017-01-02 10:59] LABS: BASO # 0.1 (0.0-0.2); BASO % 1.3 % (0.0-2.0); EOS # 0.1 (0.0-0.7); EOS % 1.2 % (0-4.0); GRAN % 81.5 % (42.2-75.2); HEMATOCRIT 47.6 % (37.0-47.0); HEMOGLOBIN 15.3 g/dl (12.5-16.0); LYMPH # 1.1 (1.2-3.4); LYMPH % 11.3 % (20.0-51.0); MEAN CELL VOLUME 91 fl (80.0-100.0); MEAN CORPUSCULAR HEMOGLOBIN 29 pg (27.0-31.0); MEAN CORPUSCULAR HGB CONC 32 g/dl (33.0-37.0); MEAN PLATELET VOLUME 8.8 fl (7.4-10.4); MONO # 0.4 (0.1-0.6); MONO % 4.4 % (1.7-9.3); PLATELET COUNT 343 K/mm3 (130-400); RED BLOOD COUNT 5.26 M/mm3 (4.10-5.30); REDCELL DISTRIBUTION WIDTH-CV 13.3 % (11.5-14.5); WHITE BLOOD COUNT 9.8 K/mm3 (4.8-10.8)
[2017-01-02 11:18] LABS: ADJUSTED CALCIUM 9.3 mg/dL (8.4-10.2); ALANINE AMINOTRANSFERASE 198 U/L (9-52); ALBUMIN 4.2 gm/dL (3.5-5.0); ALKALINE PHOSPHATASE 121 U/L (50-136); ANION GAP 10 mmol/L (7-16); BILIRUBIN,TOTAL 0.9 mg/dL (0.0-1.0); BLOOD UREA NITROGEN 17 mg/dL (7-17); CALCIUM 9.5 mg/dL (8.4-10.2); CARBON DIOXIDE 31 mmol/L (22-30); CHLORIDE 97 mmol/L (98-107); CREATININE, serum 0.94 mg/dL (0.52-1.25); GLUCOSE 100 mg/dL (74-106); LIPASE 37 U/L (23-300); POTASSIUM 4.2 mmol/L (3.4-5.0); SODIUM 138 mmol/L (137-145); TOTAL PROTEIN 7.7 gm/dL (6.4-8.2)
[2017-01-02 11:31] LABS: TROPONIN-I < 0.012 ng/mL (0.000-0.034)
[2017-01-02 11:37] LABS: PH 6 (5-8); SQUAMOUS EPITHELIAL 0-2 /hpf; URINE APPEARANCE Clear; URINE BACTERIA None Seen /hpf; URINE BILIRUBIN Negative (NEGATIVE); URINE BLOOD Negative (NEGATIVE); URINE COLOR Straw; URINE GLUCOSE Negative (NEGATIVE); URINE KETONE Negative (NEGATIVE); URINE RBC 0-2 /hpf; URINE UROBILINOGEN Negative (NEGATIVE); URINE WBC 0-2 /hpf
[2017-01-02 12:59] VITALS: BP 145/113; PULSE 80
== END 2017-01-02 13:00 | disposition home or self-care (01) ==
LOC: COL.ER 10:09
PROVIDERS: Emergency Medicine; Physician Assistant
DX: L30.9 Dermatitis, unspecified (principal); Z71.1 Person with feared health complaint in whom no diagnosis is made; R06.02 Shortness of breath; F41.9 Anxiety disorder, unspecified; F03.90 Unspecified dementia, unspecified severity, without behavioral disturbance, psychotic disturbance, mood disturbance, and anxiety; G89.29 Other chronic pain; R51 Headache

== ENCOUNTER 2017-01-13 10:28 | Emergency (ER) | payer MEDICARE, MEDICAID ==
[2009-02-26 21:52] VITALS: BP 132/80
[~2017-01-13] VITALS: Ht 144.8 cm; Wt 58.6 kg
[2017-01-13 10:47] VITALS: BP 170/80; PULSE 96; TEMP 98.2
[2017-01-13] MEDS ORDERED: BENADRYL25 M2 PO (16:07)
== END 2017-01-13 11:57 | disposition home or self-care (01) ==
LOC: COL.ER 10:28
DX: L50.9 Urticaria, unspecified (principal); E11.9 Type 2 diabetes mellitus without complications; Z79.84 Long term (current) use of oral hypoglycemic drugs; I10 Essential (primary) hypertension; F41.9 Anxiety disorder, unspecified; F32.9 Major depressive disorder, single episode, unspecified; Z87.891 Personal history of nicotine dependence

== ENCOUNTER 2017-01-16 19:24 | Emergency (ER) | payer MEDICARE, MEDICAID ==
[2009-02-26 21:52] VITALS: BP 132/80
[~2017-01-16] VITALS: Ht 144.8 cm; Wt 58.6 kg
[2017-01-16 19:32] VITALS: BP 149/68; PULSE 83; TEMP 97.8
[2017-01-17] MEDS ORDERED: ANUSOL HC CREAM30 GM TP (10:08)
[2017-01-17] MEDS ORDERED: BENADRYL ITCH28.3 G1 TP (10:09)
[2017-01-17] MEDS ORDERED: PREDNISONE20 MG PO (10:23)
== END 2017-01-16 20:39 | disposition home or self-care (01) ==
LOC: COL.ER 19:24
DX: M25.512 Pain in left shoulder (principal); R20.0 Anesthesia of skin; M54.9 Dorsalgia, unspecified; G89.29 Other chronic pain; E11.9 Type 2 diabetes mellitus without complications; I10 Essential (primary) hypertension; J44.9 Chronic obstructive pulmonary disease, unspecified; Z79.4 Long term (current) use of insulin; Z87.891 Personal history of nicotine dependence

== ENCOUNTER 2017-01-17 10:00 | Emergency (ER) | payer MEDICARE, MEDICAID ==
[2009-02-26 21:52] VITALS: BP 132/80
[~2017-01-17] VITALS: Ht 144.8 cm; Wt 58.6 kg
[2017-01-17 10:02] VITALS: BP 146/72; PULSE 89
[2017-01-17] MEDS ORDERED: ANUSOL HC CREAM30 GM TP (10:08)
[2017-01-17] MEDS ORDERED: BENADRYL ITCH28.3 G1 TP (10:09)
[2017-01-17] MEDS ORDERED: PREDNISONE20 MG PO (10:23)
[2017-01-17 12:25] LABS: PH 5 (5-8); SQUAMOUS EPITHELIAL None Seen /hpf; URINE APPEARANCE Clear; URINE BACTERIA None Seen /hpf; URINE BILIRUBIN Negative (NEGATIVE); URINE BLOOD Negative (NEGATIVE); URINE COLOR Straw; URINE GLUCOSE Negative (NEGATIVE); URINE KETONE Negative (NEGATIVE); URINE RBC None Seen /hpf; URINE UROBILINOGEN Negative (NEGATIVE); URINE WBC 0-2 /hpf
[2017-01-18] MEDS ORDERED: BENADRYL25 M2 PO (16:18)
== END 2017-01-17 13:05 | disposition home or self-care (01) ==
LOC: COL.ER 10:00
PROVIDERS: Nurse Practitioner
DX: L50.9 Urticaria, unspecified (principal); E11.9 Type 2 diabetes mellitus without complications
CPT/HCPCS: J7512

== ENCOUNTER 2017-01-18 14:28 | Emergency (ER) | payer MEDICARE, MEDICAID ==
[2009-02-26 21:52] VITALS: BP 132/80
[~2017-01-18] VITALS: Ht 144.8 cm; Wt 58.6 kg
[~2017-01-18 14:28] MED LIST changes: +ANUSOL HC CREAM30 GM TP; +BENADRYL ITCH28.3 G1 TP; +PREDNISONE20 MG PO
[2017-01-18 14:31] VITALS: TEMP 99
[2017-01-18 15:42] LABS: HEMATOCRIT 43.8 % (37.0-47.0); HEMOGLOBIN 14.6 g/dl (12.5-16.0); MEAN CELL VOLUME 89 fl (80.0-100.0); MEAN CORPUSCULAR HEMOGLOBIN 30 pg (27.0-31.0); MEAN CORPUSCULAR HGB CONC 33 g/dl (33.0-37.0); MEAN PLATELET VOLUME 8.6 fl (7.4-10.4); PLATELET COUNT 346 K/mm3 (130-400); RED BLOOD COUNT 4.92 M/mm3 (4.10-5.30); REDCELL DISTRIBUTION WIDTH-CV 13.5 % (11.5-14.5); WHITE BLOOD COUNT 17.1 K/mm3 (4.8-10.8)
[2017-01-18 16:02] LABS: ADJUSTED CALCIUM 9.5 mg/dL (8.4-10.2); ALBUMIN 4.2 gm/dL (3.5-5.0); BILIRUBIN,TOTAL 0.8 mg/dL (0.0-1.0); CALCIUM 9.7 mg/dL (8.4-10.2); CREATININE, serum 0.89 mg/dL (0.52-1.25); POTASSIUM 4.7 mmol/L (3.4-5.0); TOTAL PROTEIN 7.6 gm/dL (6.4-8.2)
[2017-01-18 16:05] LABS: ADD PATHOLOGY DIFF REVIEW NO
[2017-01-18 16:11] LABS: BAND 4 % (0-10); NEUTROPHILS 91 % (42.0-75.2); PLATELET ESTIMATE NORMAL (NORMAL); TOTAL CELLS COUNTED 100
[2017-01-18 16:12] LABS: TROPONIN-I 0.016 ng/mL (0.000-0.034)
[2017-01-18] MEDS ORDERED: BENADRYL25 M2 PO (16:18)
[2017-01-18 16:39] VITALS: BP 154/69; PULSE 95
== END 2017-01-18 16:42 | disposition home or self-care (01) ==
LOC: COL.ER 14:28
PROVIDERS: Emergency Medicine
DX: R21 Rash and other nonspecific skin eruption (principal); R06.02 Shortness of breath; E11.9 Type 2 diabetes mellitus without complications; J44.9 Chronic obstructive pulmonary disease, unspecified; Z79.4 Long term (current) use of insulin; I10 Essential (primary) hypertension

== ENCOUNTER 2017-01-22 10:51 | Emergency (ER) | payer MEDICARE, MEDICAID ==
[2009-02-26 21:52] VITALS: BP 132/80
[~2017-01-22] VITALS: Ht 144.8 cm; Wt 58.6 kg
[2017-01-22 10:52] VITALS: BP 156/68; PULSE 102; TEMP 98.2
[2017-01-22] MEDS ORDERED: ATARAX 25MG25 MG/TAB PO (11:52)
== END 2017-01-22 12:16 | disposition home or self-care (01) ==
LOC: COL.ER 10:51
DX: R21 Rash and other nonspecific skin eruption (principal); F41.9 Anxiety disorder, unspecified; E11.9 Type 2 diabetes mellitus without complications; I10 Essential (primary) hypertension; J44.9 Chronic obstructive pulmonary disease, unspecified; Z79.4 Long term (current) use of insulin

== ENCOUNTER 2017-02-01 07:17 | Emergency (ER) | payer MEDICARE, MEDICAID ==
[2009-02-26 21:52] VITALS: BP 132/80
[~2017-02-01] VITALS: Ht 157.5 cm; Wt 54.5 kg
[~2017-02-01 07:17] MED LIST changes: +ATARAX 25MG25 MG/TAB PO
[2017-02-01 07:59] LABS: BASO # 0.1 (0.0-0.2); BASO % 0.9 % (0.0-2.0); EOS # 0.1 (0.0-0.7); EOS % 1.6 % (0-4.0); GRAN % 73.7 % (42.2-75.2); HEMATOCRIT 42.4 % (37.0-47.0); HEMOGLOBIN 13.7 g/dl (12.5-16.0); LYMPH # 1.4 (1.2-3.4); LYMPH % 17.2 % (20.0-51.0); MEAN CELL VOLUME 91 fl (80.0-100.0); MEAN CORPUSCULAR HEMOGLOBIN 30 pg (27.0-31.0); MEAN CORPUSCULAR HGB CONC 32 g/dl (33.0-37.0); MEAN PLATELET VOLUME 9.1 fl (7.4-10.4); MONO # 0.5 (0.1-0.6); MONO % 6.2 % (1.7-9.3); PLATELET COUNT 323 K/mm3 (130-400); RED BLOOD COUNT 4.64 M/mm3 (4.10-5.30); REDCELL DISTRIBUTION WIDTH-CV 13.6 % (11.5-14.5); WHITE BLOOD COUNT 8.1 K/mm3 (4.8-10.8)
[2017-02-01 09:20] LABS: ALANINE AMINOTRANSFERASE 34 U/L (9-52); ALBUMIN 3.7 gm/dL (3.5-5.0); ALKALINE PHOSPHATASE 116 U/L (50-136); ANION GAP 9 mmol/L (7-16); BILIRUBIN,TOTAL 0.6 mg/dL (0.0-1.0); BLOOD UREA NITROGEN 10 mg/dL (7-17); CALCIUM 8.8 mg/dL (8.4-10.2); CARBON DIOXIDE 28 mmol/L (22-30); CHLORIDE 104 mmol/L (98-107); CREATININE, serum 0.94 mg/dL (0.52-1.25); GLUCOSE 133 mg/dL (74-106); LIPASE 30 U/L (23-300); MAGNESIUM 2.2 mg/dL (1.6-2.3); POTASSIUM 4.2 mmol/L (3.4-5.0); SODIUM 141 mmol/L (137-145); TOTAL PROTEIN 6.6 gm/dL (6.4-8.2)
[2017-02-01 09:30] LABS: PH 7 (5-8); SQUAMOUS EPITHELIAL 0-2 /hpf; URINE APPEARANCE Hazy; URINE BACTERIA Rare /hpf; URINE BILIRUBIN Negative (NEGATIVE); URINE BLOOD Negative (NEGATIVE); URINE COLOR Straw; URINE GLUCOSE Negative (NEGATIVE); URINE KETONE Negative (NEGATIVE); URINE RBC 0-2 /hpf; URINE UROBILINOGEN Negative (NEGATIVE); URINE WBC >50 /hpf
[2017-02-01 09:38] LABS: TROPONIN-I < 0.012 ng/mL (0.000-0.034)
[2017-02-01] MEDS ORDERED: CEFTIN500 MG PO (09:38)
[2017-02-01 10:51] VITALS: BP 133/68; PULSE 82; TEMP 97
== END 2017-02-01 10:43 | disposition home or self-care (01) ==
LOC: COL.ER 07:17
PROVIDERS: Emergency Medicine
DX: N39.0 Urinary tract infection, site not specified (principal); B96.20 Unspecified Escherichia coli [E. coli] as the cause of diseases classified elsewhere; J44.9 Chronic obstructive pulmonary disease, unspecified; E11.9 Type 2 diabetes mellitus without complications; I10 Essential (primary) hypertension; M19.90 Unspecified osteoarthritis, unspecified site; K21.9 Gastro-esophageal reflux disease without esophagitis; F41.9 Anxiety disorder, unspecified; F32.9 Major depressive disorder, single episode, unspecified; Z79.4 Long term (current) use of insulin; Z79.84 Long term (current) use of oral hypoglycemic drugs; Z98.51 Tubal ligation status; Z98.890 Other specified postprocedural states; Z93.3 Colostomy status
CPT/HCPCS: J0696; J3360; J7030

== ENCOUNTER 2017-02-04 20:14 | Emergency (ER) | payer MEDICARE, MEDICAID ==
[2009-02-26 21:52] VITALS: BP 132/80
[~2017-02-04] VITALS: Ht 157.5 cm; Wt 59.5 kg
[2017-02-04 20:18] VITALS: TEMP 98.6
[2017-02-04 20:45] LABS: BASO # 0.1 (0.0-0.2); EOS # 0.2 (0.0-0.7); EOS % 1.5 % (0-4.0); GRAN # 7.8 (1.4-6.5); GRAN % 77.4 % (42.2-75.2); HEMATOCRIT 39.8 % (37.0-47.0); LYMPH # 1.4 (1.2-3.4); LYMPH % 13.7 % (20.0-51.0); MEAN CELL VOLUME 90 fl (80.0-100.0); MEAN CORPUSCULAR HEMOGLOBIN 29 pg (27.0-31.0); MEAN CORPUSCULAR HGB CONC 33 g/dl (33.0-37.0); MEAN PLATELET VOLUME 8.9 fl (7.4-10.4); MONO # 0.6 (0.1-0.6); MONO % 6.1 % (1.7-9.3); PLATELET COUNT 313 K/mm3 (130-400); RED BLOOD COUNT 4.43 M/mm3 (4.10-5.30); REDCELL DISTRIBUTION WIDTH-CV 13.5 % (11.5-14.5); WHITE BLOOD COUNT 10.1 K/mm3 (4.8-10.8)
[2017-02-04 21:02] LABS: ADJUSTED CALCIUM 9.3 mg/dL (8.4-10.2); ALANINE AMINOTRANSFERASE 35 U/L (9-52); ALBUMIN 3.8 gm/dL (3.5-5.0); ALKALINE PHOSPHATASE 113 U/L (50-136); ANION GAP 13 mmol/L (7-16); BILIRUBIN,TOTAL 0.5 mg/dL (0.0-1.0); BLOOD UREA NITROGEN 9 mg/dL (7-17); CALCIUM 9.1 mg/dL (8.4-10.2); CARBON DIOXIDE 26 mmol/L (22-30); CHLORIDE 101 mmol/L (98-107); CREATININE, serum 0.93 mg/dL (0.52-1.25); GLUCOSE 179 mg/dL (74-106); LIPASE 52 U/L (23-300); POTASSIUM 3.7 mmol/L (3.4-5.0); SODIUM 139 mmol/L (137-145); TOTAL PROTEIN 6.8 gm/dL (6.4-8.2)
[2017-02-04 21:14] LABS: B-TYPE NATRIURETIC PEPTIDE 188 pg/mL (0-125)
[2017-02-04 21:35] LABS: TROPONIN-I < 0.012 ng/mL (0.000-0.034)
[2017-02-05] MEDS ORDERED: PREDNISONE20 MG PO (00:09)
[2017-02-05 00:12] VITALS: BP 177/71; PULSE 90
[2017-02-05] MEDS ORDERED: DOXYCYCLINE 10100 MG PO (21:18)
== END 2017-02-05 00:12 | disposition home or self-care (01) ==
LOC: COL.ER 20:14
PROVIDERS: Emergency Medicine
DX: R07.9 Chest pain, unspecified (principal); R06.00 Dyspnea, unspecified; R00.2 Palpitations; R05 Cough; Z60.8 Other problems related to social environment; I10 Essential (primary) hypertension; Z87.891 Personal history of nicotine dependence; E11.9 Type 2 diabetes mellitus without complications; J44.9 Chronic obstructive pulmonary disease, unspecified

== ENCOUNTER 2017-02-05 20:59 | Emergency (ER) | payer MEDICARE, MEDICAID ==
[2009-02-26 21:52] VITALS: BP 132/80
[~2017-02-05] VITALS: Ht 144.8 cm; Wt 59.5 kg
[2017-02-05 21:04] VITALS: BP 149/58; TEMP 98.3
[2017-02-05] MEDS ORDERED: DOXYCYCLINE 10100 MG PO (21:18)
[2017-02-05 22:14] VITALS: PULSE 94
== END 2017-02-05 22:14 | disposition home or self-care (01) ==
LOC: COL.ER 20:59
DX: R07.9 Chest pain, unspecified (principal); F41.9 Anxiety disorder, unspecified; I51.9 Heart disease, unspecified

== ENCOUNTER → 2017-02-15 | Emergency (ER) | payer MEDICARE, MEDICAID ==
[2009-02-26 21:52] VITALS: BP 132/80
[~2017-02-15] VITALS: Ht 144.8 cm; Wt 59.1 kg
[~2017-02-15] MED LIST changes: +CIPRO 500MG TA500 MG PO; +DOXYCYCLINE 10100 MG PO; +PRILOSEC 20MG20 MG PO; +VITAMIN D 1001000 IU PO
[2017-02-15 12:04] VITALS: BP 175/78; PULSE 96; TEMP 98.1
[2017-02-15 13:09] LABS: BASO # 0.1 (0.0-0.2); BASO % 1.1 % (0.0-2.0); EOS # 0.1 (0.0-0.7); GRAN # 7.4 (1.4-6.5); GRAN % 78.6 % (42.2-75.2); HEMATOCRIT 43.7 % (37.0-47.0); HEMOGLOBIN 14.4 g/dl (12.5-16.0); LYMPH # 1.2 (1.2-3.4); LYMPH % 12.7 % (20.0-51.0); MEAN CELL VOLUME 90 fl (80.0-100.0); MEAN CORPUSCULAR HEMOGLOBIN 30 pg (27.0-31.0); MEAN CORPUSCULAR HGB CONC 33 g/dl (33.0-37.0); MEAN PLATELET VOLUME 8.6 fl (7.4-10.4); MONO # 0.6 (0.1-0.6); MONO % 6.1 % (1.7-9.3); PLATELET COUNT 371 K/mm3 (130-400); RED BLOOD COUNT 4.84 M/mm3 (4.10-5.30); REDCELL DISTRIBUTION WIDTH-CV 13.2 % (11.5-14.5); WHITE BLOOD COUNT 9.4 K/mm3 (4.8-10.8)
[2017-02-15 13:13] LABS: PH 6 (5-8); SQUAMOUS EPITHELIAL 0-2 /hpf; URINE APPEARANCE Clear; URINE BACTERIA None Seen /hpf; URINE BILIRUBIN Negative (NEGATIVE); URINE BLOOD Negative (NEGATIVE); URINE COLOR Straw; URINE GLUCOSE Negative (NEGATIVE); URINE KETONE Negative (NEGATIVE); URINE RBC None Seen /hpf; URINE UROBILINOGEN Negative (NEGATIVE); URINE WBC 0-2 /hpf
[2017-02-15 13:41] LABS: ADJUSTED CALCIUM 8.9 mg/dL (8.4-10.2); ALANINE AMINOTRANSFERASE 27 U/L (9-52); ALBUMIN 4.4 gm/dL (3.5-5.0); ALKALINE PHOSPHATASE 134 U/L (50-136); ANION GAP 11 mmol/L (7-16); BILIRUBIN,TOTAL 0.7 mg/dL (0.0-1.0); BLOOD UREA NITROGEN 16 mg/dL (7-17); CALCIUM 9.2 mg/dL (8.4-10.2); CARBON DIOXIDE 28 mmol/L (22-30); CHLORIDE 99 mmol/L (98-107); CREATININE, serum 1.03 mg/dL (0.52-1.25); GLUCOSE 100 mg/dL (74-106); POTASSIUM 4.2 mmol/L (3.4-5.0); SODIUM 138 mmol/L (137-145); TOTAL PROTEIN 7.7 gm/dL (6.4-8.2)
[2017-02-15 13:52] LABS: B-TYPE NATRIURETIC PEPTIDE 189 pg/mL (0-125)
[2017-02-15 13:53] LABS: TROPONIN-I < 0.012 ng/mL (0.000-0.034)
== END | disposition home or self-care (01) ==
LOC: COL.ER 11:54
PROVIDERS: Emergency Medicine
DX: F41.9 Anxiety disorder, unspecified (principal); R53.81 Other malaise; R06.02 Shortness of breath; E11.9 Type 2 diabetes mellitus without complications; I10 Essential (primary) hypertension; Z87.11 Personal history of peptic ulcer disease

== ENCOUNTER 2017-03-12 17:02 | Emergency (ER) | payer MEDICARE, MEDICAID ==
[2009-02-26 21:52] VITALS: BP 132/80
[~2017-03-12] VITALS: Ht 144.8 cm; Wt 56.8 kg
[~2017-03-12 17:02] MED LIST changes: -CIPRO 500MG TA500 MG PO; -PRILOSEC 20MG20 MG PO; -VITAMIN D 1001000 IU PO
[2017-03-12 17:13] VITALS: TEMP 98.5
[2017-03-12] MEDS ORDERED: VITAMIN D 1001000 IU PO (17:27)
[2017-03-12] MEDS ORDERED: CLARITIN 1010 MG/TAB PO (17:28)
[2017-03-12 17:53] LABS: PH 5 (5-8); SQUAMOUS EPITHELIAL 0-2 /hpf; URINE APPEARANCE Hazy; URINE BACTERIA Rare /hpf; URINE BILIRUBIN Negative (NEGATIVE); URINE BLOOD Negative (NEGATIVE); URINE COLOR Yellow; URINE GLUCOSE Negative (NEGATIVE); URINE KETONE Negative (NEGATIVE); URINE RBC 0-2 /hpf; URINE UROBILINOGEN Negative (NEGATIVE)
[2017-03-12] MEDS ORDERED: PRILOSEC 20MG20 MG PO (18:09)
[2017-03-12] MEDS ORDERED: NORCO 325 MG-51 TAB PO (18:10)
[2017-03-12] MEDS ORDERED: XANAX 1MG1 MG PO (18:11)
[2017-03-12 18:28] VITALS: BP 145/77; PULSE 99
[2017-03-12] MEDS ORDERED: CIPRO 500MG TA500 MG PO (18:31)
== END 2017-03-12 18:37 | disposition home or self-care (01) ==
LOC: COL.ER 17:02
PROVIDERS: Emergency Medicine
DX: N39.0 Urinary tract infection, site not specified (principal); E11.9 Type 2 diabetes mellitus without complications; I10 Essential (primary) hypertension; Z79.84 Long term (current) use of oral hypoglycemic drugs

== ENCOUNTER → 2017-04-22 | Outpatient (CLI) | payer MEDICARE, MEDICAID ==
[~2017-04-22] MED LIST changes: +CIPRO 500MG TA500 MG PO; +PRILOSEC 20MG20 MG PO; +VITAMIN D 1001000 IU PO
[2017-04-22 17:55] LABS: PH 5 (5-8); SQUAMOUS EPITHELIAL 0-2 /hpf; URINE APPEARANCE Clear; URINE BACTERIA None Seen /hpf; URINE BILIRUBIN Negative (NEGATIVE); URINE BLOOD Negative (NEGATIVE); URINE COLOR Straw; URINE GLUCOSE Negative (NEGATIVE); URINE KETONE Negative (NEGATIVE); URINE RBC 0-2 /hpf; URINE UROBILINOGEN Negative (NEGATIVE); URINE WBC 0-2 /hpf
== END ==
LOC: ZCOL.LAB 17:35
PROVIDERS: Internal Medicine
DX: N39.0 Urinary tract infection, site not specified (principal)

== ENCOUNTER → 2017-04-22 | Outpatient (CLI) | payer MEDICARE, MEDICAID ==
[2017-04-22 16:00] LABS: BASO # 0.1 (0.0-0.2); BASO % 1.4 % (0.0-2.0); EOS # 0.1 (0.0-0.7); EOS % 0.9 % (0-4.0); GRAN # 7.1 (1.4-6.5); GRAN % 77.4 % (42.2-75.2); HEMATOCRIT 46.3 % (37.0-47.0); HEMOGLOBIN 14.9 g/dl (12.5-16.0); LYMPH # 1.3 (1.2-3.4); LYMPH % 13.7 % (20.0-51.0); MEAN CELL VOLUME 89 fl (80.0-100.0); MEAN CORPUSCULAR HEMOGLOBIN 29 pg (27.0-31.0); MEAN CORPUSCULAR HGB CONC 32 g/dl (33.0-37.0); MEAN PLATELET VOLUME 9.4 fl (7.4-10.4); MONO # 0.6 (0.1-0.6); MONO % 6.4 % (1.7-9.3); PLATELET COUNT 349 K/mm3 (130-400); RED BLOOD COUNT 5.18 M/mm3 (4.10-5.30); REDCELL DISTRIBUTION WIDTH-CV 12.6 % (11.5-14.5); WHITE BLOOD COUNT 9.2 K/mm3 (4.8-10.8)
[2017-04-22 16:21] LABS: ADJUSTED CALCIUM 9.8 mg/dL (8.4-10.2); ALBUMIN 4.4 gm/dL (3.5-5.0); BILIRUBIN,TOTAL 0.6 mg/dL (0.0-1.0); CALCIUM 10.1 mg/dL (8.4-10.2); CREATININE, serum 1.01 mg/dL (0.52-1.25); POTASSIUM 4.5 mmol/L (3.4-5.0); TOTAL PROTEIN 7.5 gm/dL (6.4-8.2)
[2017-04-22 16:52] LABS: THYROID STIMULATING HORMONE 2.91 uIU/mL (0.465-4.680)
== END ==
LOC: ZCOL.LAB 15:52
PROVIDERS: Internal Medicine
DX: F33.1 Major depressive disorder, recurrent, moderate (principal); E11.9 Type 2 diabetes mellitus without complications

== ENCOUNTER 2017-04-23 17:17 | Emergency (ER) | payer MEDICARE, MEDICAID ==
[2009-02-26 21:52] VITALS: BP 132/80
[~2017-04-23] VITALS: Ht 144.8 cm; Wt 58.6 kg
[2017-04-23 17:21] VITALS: TEMP 99.7
[2017-04-23 19:09] LABS: PH 5 (5-8); SQUAMOUS EPITHELIAL 0-2 /hpf; URINE APPEARANCE Clear; URINE BACTERIA None Seen /hpf; URINE COLOR Yellow; URINE RBC 0-2 /hpf; URINE WBC 0-2 /hpf
[2017-04-23 19:10] LABS: URINE BILIRUBIN Negative (NEGATIVE); URINE BLOOD Negative (NEGATIVE); URINE GLUCOSE Negative (NEGATIVE); URINE KETONE Negative (NEGATIVE); URINE UROBILINOGEN Negative (NEGATIVE)
[2017-04-23 19:11] LABS: AMPHETAMINE URINE NEGATIVE; BARBITURATES URINE NEGATIVE; BENZODIAZEPINES URINE POSITIVE; BUPRENORPHINE URINE NEGATIVE; METHADONE URINE NEGATIVE; OPIATES URINE NEGATIVE; OXYCODONE URINE NEGATIVE; PHENCYCLIDINE URINE NEGATIVE; PROPOXYPHENE URINE NEGATIVE; THC CANNABINOIDS URINE NEGATIVE
[2017-04-23 19:28] LABS: ADJUSTED CALCIUM 9.7 mg/dL (8.4-10.2); ALANINE AMINOTRANSFERASE 24 U/L (9-52); ALBUMIN 4.4 gm/dL (3.5-5.0); ALKALINE PHOSPHATASE 120 U/L (50-136); ANION GAP 11 mmol/L (7-16); BILIRUBIN,TOTAL 0.8 mg/dL (0.0-1.0); BLOOD UREA NITROGEN 12 mg/dL (7-17); CARBON DIOXIDE 25 mmol/L (22-30); CHLORIDE 103 mmol/L (98-107); CREATININE, serum 1.09 mg/dL (0.52-1.25); GLUCOSE 88 mg/dL (74-106); LIPASE 57 U/L (23-300); POTASSIUM 3.8 mmol/L (3.4-5.0); SODIUM 140 mmol/L (137-145); TOTAL PROTEIN 7.8 gm/dL (6.4-8.2)
[2017-04-23 19:29] LABS: ACETAMINOPHEN < 10 ug/mL (10-30); C-REACTIVE PROTEIN < 0.5 mg/dL (0.0-0.9); SALICYLATE < 1.0 mg/dL
[2017-04-23 19:39] LABS: TROPONIN-I < 0.012 ng/mL (0.000-0.034)
[2017-04-23 21:44] VITALS: BP 111/77; PULSE 95
== END 2017-04-23 21:44 | disposition home or self-care (01) ==
LOC: COL.ER 17:17
PROVIDERS: Emergency Medicine
DX: R07.9 Chest pain, unspecified (principal); F03.90 Unspecified dementia, unspecified severity, without behavioral disturbance, psychotic disturbance, mood disturbance, and anxiety; I10 Essential (primary) hypertension; E11.9 Type 2 diabetes mellitus without complications; Z90.49 Acquired absence of other specified parts of digestive tract; Z87.891 Personal history of nicotine dependence; Z79.82 Long term (current) use of aspirin; Z79.4 Long term (current) use of insulin; Z79.84 Long term (current) use of oral hypoglycemic drugs; Z98.51 Tubal ligation status

== ENCOUNTER → 2017-07-20 | Outpatient (CLI) | payer MEDICARE, MEDICAID ==
[2017-07-20 04:22] LABS: ALBUMIN 3.2 gm/dL (3.5-5.0); BILIRUBIN,TOTAL 0.3 mg/dL (0.0-1.0); CALCIUM 9.4 mg/dL (8.4-10.2); CHOLESTEROL RISK RATIO 4.9; CREATININE, serum 1.15 mg/dL (0.52-1.25); POTASSIUM 3.9 mmol/L (3.4-5.0); TOTAL PROTEIN 5.7 gm/dL (6.4-8.2)
== END ==
LOC: ZCOL.LAB 02:59
PROVIDERS: Internal Medicine
DX: E11.9 Type 2 diabetes mellitus without complications (principal); Z13.220 Encounter for screening for lipoid disorders; Z87.891 Personal history of nicotine dependence

== ENCOUNTER → 2017-10-14 | Outpatient (REF) | LOC: ZCOL.LAB 19:08 | DX: E11.9 Type 2 diabetes mellitus without complications (principal) ==

== ENCOUNTER → 2017-10-14 | Outpatient (CLI) | payer MEDICARE, MEDICAID | LOC: ZCOL.LAB 19:06 | DX: Z01.89 Encounter for other specified special examinations (principal) ==

== ENCOUNTER → 2017-11-24 | Outpatient (CLI) | payer MEDICARE, MEDICAID ==
[2017-11-24 19:44] LABS: COLLECTION METHOD CLEAN CATCH
[2017-11-24 19:50] LABS: MUCOUS Present /lpf; PH 5 (5-8); URINE APPEARANCE Hazy; URINE BACTERIA None Seen /hpf; URINE BILIRUBIN Negative (NEGATIVE); URINE BLOOD Negative (NEGATIVE); URINE COLOR Yellow; URINE GLUCOSE Negative (NEGATIVE); URINE KETONE Negative (NEGATIVE); URINE LEUKOCYTE ESTERASE Negative (NEGATIVE); URINE NITRATE Negative (NEGATIVE); URINE PROTEIN(semi-quant) Negative (NEGATIVE); URINE RBC 0-2 /hpf; URINE UROBILINOGEN Negative (NEGATIVE)
== END ==
LOC: ZCOL.LAB 19:08
PROVIDERS: Internal Medicine
DX: E11.9 Type 2 diabetes mellitus without complications (principal)

== ENCOUNTER → 2018-01-09 | Outpatient (CLI) | payer MEDICARE, MEDICAID ==
[2018-01-09 07:47] LABS: BASO # 0.1 (0.0-0.2); BASO % 1.7 % (0.0-2.0); EOS # 0.7 (0.0-0.7); EOS % 8.4 % (0-4.0); GRAN # 4.5 (1.4-6.5); GRAN % 55.9 % (42.2-75.2); HEMATOCRIT 40.4 % (37.0-47.0); HEMOGLOBIN 12.9 g/dl (12.5-16.0); LYMPH % 24.2 % (20.0-51.0); MEAN CELL VOLUME 93 fl (80.0-100.0); MEAN CORPUSCULAR HEMOGLOBIN 30 pg (27.0-31.0); MEAN CORPUSCULAR HGB CONC 32 g/dl (33.0-37.0); MONO # 0.8 (0.1-0.6); MONO % 9.4 % (1.7-9.3); PLATELET COUNT 321 K/mm3 (130-400); RED BLOOD COUNT 4.36 M/mm3 (4.10-5.30); REDCELL DISTRIBUTION WIDTH-CV 12.9 % (11.5-14.5)
[2018-01-09 08:03] LABS: ALBUMIN 3.3 gm/dL (3.5-5.0); BILIRUBIN,TOTAL 0.3 mg/dL (0.0-1.0); CALCIUM 9.3 mg/dL (8.4-10.2); CHOLESTEROL RISK RATIO 5.2; CREATININE, serum 1.55 mg/dL (0.52-1.25); POTASSIUM 4.8 mmol/L (3.4-5.0); TOTAL PROTEIN 6.3 gm/dL (6.4-8.2)
== END ==
LOC: ZCOL.LAB 06:30
PROVIDERS: Internal Medicine
DX: E11.9 Type 2 diabetes mellitus without complications (principal)

== ENCOUNTER → 2018-02-24 | Outpatient (REF) ==
[2018-02-24 17:14] LABS: COLLECTION METHOD CLEAN CATCH
[2018-02-24 17:25] LABS: BASO # 0.1 (0.0-0.2); BASO % 1.4 % (0.0-2.0); EOS # 0.3 (0.0-0.7); EOS % 4.1 % (0-4.0); GRAN # 4.9 (1.4-6.5); GRAN % 60.9 % (42.2-75.2); HEMATOCRIT 41.7 % (37.0-47.0); HEMOGLOBIN 13.5 g/dl (12.5-16.0); LYMPH % 25.2 % (20.0-51.0); MEAN CELL VOLUME 92 fl (80.0-100.0); MEAN CORPUSCULAR HEMOGLOBIN 30 pg (27.0-31.0); MEAN CORPUSCULAR HGB CONC 32 g/dl (33.0-37.0); MEAN PLATELET VOLUME 9.2 fl (7.4-10.4); MONO # 0.7 (0.1-0.6); PLATELET COUNT 342 K/mm3 (130-400); RED BLOOD COUNT 4.54 M/mm3 (4.10-5.30); REDCELL DISTRIBUTION WIDTH-CV 12.5 % (11.5-14.5)
[2018-02-24 17:30] LABS: PH 5 (5-8); URINE APPEARANCE Hazy; URINE BACTERIA None Seen /hpf; URINE BILIRUBIN Negative (NEGATIVE); URINE BLOOD Negative (NEGATIVE); URINE COLOR Straw; URINE GLUCOSE Negative (NEGATIVE); URINE KETONE Negative (NEGATIVE); URINE LEUKOCYTE ESTERASE Trace (NEGATIVE); URINE NITRATE Negative (NEGATIVE); URINE PROTEIN(semi-quant) Negative (NEGATIVE); URINE RBC 0-2 /hpf; URINE UROBILINOGEN Negative (NEGATIVE)
[2018-02-24 17:45] LABS: ALBUMIN 3.7 gm/dL (3.5-5.0); BILIRUBIN,TOTAL 0.2 mg/dL (0.0-1.0); CALCIUM 9.3 mg/dL (8.4-10.2); CREATININE, serum 1.33 mg/dL (0.52-1.25); POTASSIUM 4.8 mmol/L (3.4-5.0); TOTAL PROTEIN 7.2 gm/dL (6.4-8.2)
== END ==
LOC: ZCOL.LAB 17:12
PROVIDERS: Internal Medicine
DX: Z01.89 Encounter for other specified special examinations (principal)

== ENCOUNTER → 2018-04-10 | Outpatient (CLI) | payer MEDICARE, MEDICAID | LOC: ZCOL.LAB 10:40 | DX: Z01.89 Encounter for other specified special examinations (principal); Z53.9 Procedure and treatment not carried out, unspecified reason ==

== ENCOUNTER → 2018-04-10 | Outpatient (REF) | LOC: ZCOL.LAB 10:56 | DX: Z01.89 Encounter for other specified special examinations (principal) ==

== ENCOUNTER 2018-06-21 17:46 | Emergency (ER) | payer MEDICARE, MEDICAID ==
[2009-02-26 21:52] VITALS: BP 132/80
[~2018-06-21] VITALS: Ht 144.8 cm; Wt 62.1 kg
[2018-06-21 18:00] VITALS: BP 121/57; TEMP 97.7
[2018-06-21 19:07] LABS: BASO # 0.1 (0.0-0.2); BASO % 1.3 % (0.0-2.0); EOS # 0.3 (0.0-0.7); EOS % 4.2 % (0-4.0); GRAN # 4.1 (1.4-6.5); GRAN % 54.1 % (42.2-75.2); HEMATOCRIT 35.6 % (37.0-47.0); HEMOGLOBIN 11.6 g/dl (12.5-16.0); LYMPH # 2.4 (1.2-3.4); LYMPH % 31.2 % (20.0-51.0); MEAN CELL VOLUME 89 fl (80.0-100.0); MEAN CORPUSCULAR HEMOGLOBIN 29 pg (27.0-31.0); MEAN CORPUSCULAR HGB CONC 33 g/dl (33.0-37.0); MEAN PLATELET VOLUME 9.1 fl (7.4-10.4); MONO # 0.7 (0.1-0.6); MONO % 8.9 % (1.7-9.3); PLATELET COUNT 248 K/mm3 (130-400); RED BLOOD COUNT 3.98 M/mm3 (4.10-5.30); REDCELL DISTRIBUTION WIDTH-CV 12.6 % (11.5-14.5)
[2018-06-21 19:17] LABS: ALBUMIN 3.9 gm/dL (3.5-5.0); BILIRUBIN,TOTAL 0.2 mg/dL (0.0-1.0); CALCIUM 8.8 mg/dL (8.4-10.2); CREATININE, serum 1.61 mg/dL (0.52-1.25); POTASSIUM 5.1 mmol/L (3.4-5.0)
[2018-06-21 22:16] VITALS: PULSE 84
== END 2018-06-21 22:16 | disposition home or self-care (01) ==
LOC: COL.ER 17:46
PROVIDERS: Emergency Medicine
DX: S60.221A Contusion of right hand, initial encounter (principal); E86.0 Dehydration; Z79.82 Long term (current) use of aspirin; Z79.84 Long term (current) use of oral hypoglycemic drugs; X79.XXXA Intentional self-harm by blunt object, initial encounter
CPT/HCPCS: J7030

== ENCOUNTER → 2018-07-07 | Outpatient (REF) | LOC: ZCOL.LAB 08:48 | DX: E11.9 Type 2 diabetes mellitus without complications (principal) ==

== ENCOUNTER 2018-07-27 11:09 | Emergency (ER) | payer MEDICARE, MEDICAID ==
[2009-02-26 21:52] VITALS: BP 132/80
[~2018-07-27] VITALS: Ht 144.8 cm; Wt 43.6 kg
[2018-07-27 12:26] LABS: BASO # 0.1 (0.0-0.2); BASO % 1.3 % (0.0-2.0); EOS # 0.2 (0.0-0.7); EOS % 2.4 % (0-4.0); GRAN # 4.7 (1.4-6.5); GRAN % 65.8 % (42.2-75.2); LYMPH # 1.6 (1.2-3.4); LYMPH % 22.3 % (20.0-51.0); MEAN CELL VOLUME 91 fl (80.0-100.0); MEAN CORPUSCULAR HEMOGLOBIN 30 pg (27.0-31.0); MEAN CORPUSCULAR HGB CONC 33 g/dl (33.0-37.0); MEAN PLATELET VOLUME 8.7 fl (7.4-10.4); MONO # 0.6 (0.1-0.6); MONO % 7.9 % (1.7-9.3); PLATELET COUNT 311 K/mm3 (130-400); REDCELL DISTRIBUTION WIDTH-CV 12.9 % (11.5-14.5)
[2018-07-27 12:30] LABS: HEMATOCRIT 33.6 % (37.0-47.0)
[2018-07-27 12:39] LABS: ALANINE AMINOTRANSFERASE 30 U/L (9-52); ALKALINE PHOSPHATASE 88 U/L (50-136); ANION GAP 6 mmol/L (7-16); AST,SGOT 28 U/L (15-37); BILIRUBIN,TOTAL 0.2 mg/dL (0.0-1.0); BLOOD UREA NITROGEN 27 mg/dL (7-17); CALCIUM 9.2 mg/dL (8.4-10.2); CARBON DIOXIDE 28 mmol/L (22-30); CHLORIDE 101 mmol/L (98-107); CREATININE, serum 1.61 mg/dL (0.52-1.25); GLUCOSE 102 mg/dL (74-106); POTASSIUM 5.3 mmol/L (3.4-5.0); SODIUM 135 mmol/L (137-145); TOTAL PROTEIN 7.1 gm/dL (6.4-8.2)
[2018-07-27 13:40] LABS: ACETAMINOPHEN < 10 ug/mL (10-30); ALCOHOL(ethanol),MEDICAL < 10 mg/dL
[2018-07-27 13:41] LABS: COLLECTION METHOD CLEAN CATCH
[2018-07-27 13:47] LABS: PH 5 (5-8); SQUAMOUS EPITHELIAL 0-2 /hpf; URINE APPEARANCE Clear; URINE BACTERIA None Seen /hpf; URINE BILIRUBIN Negative (NEGATIVE); URINE BLOOD Negative (NEGATIVE); URINE COLOR Straw; URINE GLUCOSE Negative (NEGATIVE); URINE KETONE Negative (NEGATIVE); URINE LEUKOCYTE ESTERASE Negative (NEGATIVE); URINE NITRATE Negative (NEGATIVE); URINE PROTEIN(semi-quant) Negative (NEGATIVE); URINE RBC None Seen /hpf; URINE UROBILINOGEN Negative (NEGATIVE)
[2018-07-27 14:02] LABS: TRICYCLIC ANTIDEPRESS URINE NEGATIVE
[2018-07-27 15:15] VITALS: BP 139/59; PULSE 82; TEMP 98
[2018-07-27] MEDS ORDERED: DESYREL 50MG50 MG PO (15:48)
[2018-07-27] MEDS ORDERED: ZYRTEC 10MG10 MG PO (15:48)
[2018-07-27] MEDS ORDERED: CELEXA 20MG20 MG/TAB PO (15:49)
[2018-07-27] MEDS ORDERED: ZETIA 10MG TAB10 MG PO (15:50)
[2018-07-27] MEDS ORDERED: LEVOXYL0.025 MG PO (15:50)
[2018-07-27] MEDS ORDERED: RISPERDAL 0.20.25 MG PO (15:51)
[2018-07-27] MEDS ORDERED: RISPERDAL 0.5M0.5 MG PO (15:52)
[2018-07-27] MEDS ORDERED: PRINIVIL10 MG PO (15:53)
[2018-07-27] MEDS ORDERED: JANUVIA50 MG PO (15:54)
[2018-07-27] MEDS ORDERED: ULTRAM 50MG TAB50 MG PO (15:57)
== END 2018-07-27 15:16 | disposition home or self-care (01) ==
LOC: COL.ER 11:09
PROVIDERS: Family Medicine
DX: R45.851 Suicidal ideations (principal); F32.9 Major depressive disorder, single episode, unspecified; F03.90 Unspecified dementia, unspecified severity, without behavioral disturbance, psychotic disturbance, mood disturbance, and anxiety; F22 Delusional disorders

== ENCOUNTER → 2018-08-21 | Outpatient (CLI) | payer MEDICARE, MEDICAID ==
[~2018-08-21] MED LIST changes: +CELEXA 20MG20 MG/TAB PO; +JANUVIA50 MG PO; +LEVOXYL0.025 MG PO; +PRINIVIL10 MG PO; +RISPERDAL 0.20.25 MG PO; +RISPERDAL 0.5M0.5 MG PO; +ZETIA 10MG TAB10 MG PO; +ZYRTEC 10MG10 MG PO
== END ==
LOC: ZCOL.LAB 19:08
DX: N39.0 Urinary tract infection, site not specified (principal)

== ENCOUNTER → 2018-08-21 | Outpatient (CLI) | payer MEDICARE, MEDICAID ==
[2018-08-21 18:11] LABS: COLLECTION METHOD CLEAN CATCH
[2018-08-21 18:23] LABS: MUCOUS Present /lpf; PH 5 (5-8); SQUAMOUS EPITHELIAL 0-2 /hpf; URINE APPEARANCE Cloudy; URINE BACTERIA None Seen /hpf; URINE BILIRUBIN Negative (NEGATIVE); URINE BLOOD Negative (NEGATIVE); URINE COLOR Yellow; URINE GLUCOSE Negative (NEGATIVE); URINE KETONE Negative (NEGATIVE); URINE LEUKOCYTE ESTERASE 3+ (NEGATIVE); URINE NITRATE Negative (NEGATIVE); URINE PROTEIN(semi-quant) Negative (NEGATIVE); URINE UROBILINOGEN Negative (NEGATIVE); URINE WBC >50 /hpf
== END ==
LOC: ZCOL.LAB 18:00
PROVIDERS: Internal Medicine
DX: N39.0 Urinary tract infection, site not specified (principal)

== ENCOUNTER → 2018-10-03 | Outpatient (CLI) | payer MEDICARE, MEDICAID ==
[2018-10-03 12:19] LABS: COLLECTION METHOD CLEAN CATCH
[2018-10-03 12:46] LABS: PH 5 (5-8); SQUAMOUS EPITHELIAL None Seen /hpf; URINE APPEARANCE Clear; URINE BACTERIA Rare /hpf; URINE BILIRUBIN Negative (NEGATIVE); URINE BLOOD Negative (NEGATIVE); URINE COLOR Straw; URINE GLUCOSE Negative (NEGATIVE); URINE KETONE Negative (NEGATIVE); URINE LEUKOCYTE ESTERASE Trace (NEGATIVE); URINE NITRATE Positive (NEGATIVE); URINE PROTEIN(semi-quant) Negative (NEGATIVE); URINE RBC 0-2 /hpf; URINE UROBILINOGEN Negative (NEGATIVE)
== END ==
LOC: ZCOL.LAB 10:34
PROVIDERS: Internal Medicine
DX: N39.0 Urinary tract infection, site not specified (principal)

== ENCOUNTER → 2018-10-09 | Outpatient (REF) | LOC: ZCOL.LAB 11:46 | DX: E11.9 Type 2 diabetes mellitus without complications (principal) ==

== ENCOUNTER → 2018-10-13 | Outpatient (CLI) | payer MEDICARE, MEDICAID | LOC: ZCOL.LAB 13:59 | DX: E78.49 Other hyperlipidemia (principal) ==

== ENCOUNTER → 2018-10-17 | Outpatient (CLI) | payer MEDICARE, MEDICAID | LOC: ZCOL.LAB 13:38 | DX: E78.49 Other hyperlipidemia (principal) ==

== ENCOUNTER 2019-02-01 16:56 | Emergency (ER) | payer MEDICARE, MEDICAID ==
[2009-02-26 21:52] VITALS: BP 132/80
[~2019-02-01] VITALS: Ht 144.8 cm; Wt 63.6 kg
[2019-02-01 16:58] VITALS: BP 133/74; TEMP 97.2
[2019-02-01 17:28] LABS: BASO # 0.1 (0.0-0.2); BASO % 1.4 % (0.0-2.0); EOS # 0.3 (0.0-0.7); EOS % 4.3 % (0-4.0); GRAN # 4.5 (1.4-6.5); GRAN % 63.5 % (42.2-75.2); HEMOGLOBIN 11.4 g/dl (12.5-16.0); LYMPH # 1.6 (1.2-3.4); MEAN CELL VOLUME 92 fl (80.0-100.0); MEAN CORPUSCULAR HEMOGLOBIN 30 pg (27.0-31.0); MEAN CORPUSCULAR HGB CONC 32 g/dl (33.0-37.0); MEAN PLATELET VOLUME 9.1 fl (7.4-10.4); MONO # 0.6 (0.1-0.6); MONO % 8.7 % (1.7-9.3); PLATELET COUNT 277 K/mm3 (130-400); RED BLOOD COUNT 3.84 M/mm3 (4.10-5.30); REDCELL DISTRIBUTION WIDTH-CV 12.6 % (11.5-14.5)
[2019-02-01 17:30] LABS: HEMATOCRIT 35.5 % (37.0-47.0)
[2019-02-01 17:31] LABS: COLLECTION METHOD CLEAN CATCH
[2019-02-01 17:37] LABS: ALANINE AMINOTRANSFERASE < 6 U/L (9-52); ALBUMIN 3.9 gm/dL (3.5-5.0); ALKALINE PHOSPHATASE 111 U/L (50-136); ANION GAP 10 mmol/L (7-16); AST,SGOT 28 U/L (15-37); BILIRUBIN,TOTAL 0.3 mg/dL (0.0-1.0); BLOOD UREA NITROGEN 23 mg/dL (7-17); CALCIUM 9.4 mg/dL (8.4-10.2); CARBON DIOXIDE 26 mmol/L (22-30); CHLORIDE 103 mmol/L (98-107); CREATININE, serum 1.78 (0.52-1.25); GLUCOSE 151 mg/dL (74-106); POTASSIUM 4.6 mmol/L (3.4-5.0); SALICYLATE 1.1 mg/dL; SODIUM 138 mmol/L (137-145); TOTAL PROTEIN 7.3 gm/dL (6.4-8.2)
[2019-02-01 17:39] LABS: ACETAMINOPHEN < 10 ug/mL (10-30); ALCOHOL(ethanol),MEDICAL < 10 mg/dL
[2019-02-01] MEDS ORDERED: BUSPAR5 MG PO (17:39)
[2019-02-01] MEDS ORDERED: FENTANYL 12MCG TD (17:40)
[2019-02-01] MEDS ORDERED: MIRTAZAPINE7.5 MG PO (17:41)
[2019-02-01] MEDS ORDERED: TYLENOL 325MG325 MG (17:42)
[2019-02-01 17:43] LABS: TRICYCLIC ANTIDEPRESS URINE NEGATIVE
[2019-02-01] MEDS ORDERED: ZOLOFT 25MG25 MG PO (17:44)
[2019-02-01] MEDS ORDERED: LIDODERM 5% PATC1 EA TP (17:45)
[2019-02-01] MEDS ORDERED: JANUVIA50 MG PO (17:46)
[2019-02-01] MEDS ORDERED: COLACE 100100 MG/CAP PO (17:46)
[2019-02-01] MEDS ORDERED: ZYPREXA2.5 MG PO (17:47)
[2019-02-01] MEDS ORDERED: PEPCID 20MG TAB20 MG (17:48)
[2019-02-01] MEDS ORDERED: DULCOLAX TAB5 MG PO (17:48)
[2019-02-01] MEDS ORDERED: GAS RELIEF 8080 MG PO (17:49)
[2019-02-01] MEDS ORDERED: ANTI-DIARRHEAL2 MG PO (17:49)
[2019-02-01] MEDS ORDERED: GERI-TUSSI100 MG/5 M PO (17:49)
[2019-02-01] MEDS ORDERED: MILK OF MA400 MG/52 (17:50)
[2019-02-01] MEDS ORDERED: MAG-AL LIQUID 230 ML PO (17:50)
[2019-02-01 17:52] VITALS: PULSE 88
[2019-02-01 17:55] LABS: PH 7 (5-8); SQUAMOUS EPITHELIAL 0-2 /hpf; URINE APPEARANCE Clear; URINE BACTERIA Many /hpf; URINE BILIRUBIN Negative (NEGATIVE); URINE BLOOD Negative (NEGATIVE); URINE COLOR Yellow; URINE GLUCOSE Negative (NEGATIVE); URINE KETONE Negative (NEGATIVE); URINE LEUKOCYTE ESTERASE Trace (NEGATIVE); URINE NITRATE Negative (NEGATIVE); URINE PROTEIN(semi-quant) Negative (NEGATIVE); URINE RBC 0-2 /hpf; URINE UROBILINOGEN Negative (NEGATIVE)
[2019-02-01 18:08] LABS: TROPONIN-I < 0.012 ng/mL (0.000-0.035)
[2019-02-01] MEDS ORDERED: CIPRO 250MG TA250 MG PO (18:53)
--- NOTE | 2019-02-02 13:50 | NUR ---
LYNN rec's referral on patient/ SW unable to meet with patient before discharge from the ER. Referral said that patient was unhappy with the nursing facility she lives at. YLNN contacted Steph from [facility] and reported the concerns patient has. Steph reported she will have Ward, social professionals from [facility], meet with patient about concerns.
== END 2019-02-01 19:36 | disposition home or self-care (01) ==
LOC: COL.ER 16:56
PROVIDERS: Emergency Medicine
DX: F32.9 Major depressive disorder, single episode, unspecified (principal); R45.851 Suicidal ideations; N39.0 Urinary tract infection, site not specified; I10 Essential (primary) hypertension; E11.9 Type 2 diabetes mellitus without complications; E78.00 Pure hypercholesterolemia, unspecified; E11.22 Type 2 diabetes mellitus with diabetic chronic kidney disease; I12.9 Hypertensive chronic kidney disease with stage 1 through stage 4 chronic kidney disease, or unspecified chronic kidney disease; N18.9 Chronic kidney disease, unspecified; Z79.82 Long term (current) use of aspirin; Z90.49 Acquired absence of other specified parts of digestive tract

== ENCOUNTER → 2019-04-13 | Outpatient (CLI) | payer MEDICARE, MEDICAID ==
[~2019-04-13] MED LIST changes: +ANTI-DIARRHEAL2 MG PO; +BUSPAR5 MG PO; +CIPRO 250MG TA250 MG PO; +COLACE 100100 MG/CAP PO; +DULCOLAX TAB5 MG PO; +FENTANYL 12MCG TD; +GAS RELIEF 8080 MG PO; +GERI-TUSSI100 MG/5 M PO; +LIDODERM 5% PATC1 EA TP; +MAG-AL LIQUID 230 ML PO; +MILK OF MA400 MG/52; +MIRTAZAPINE7.5 MG PO; +PEPCID 20MG TAB20 MG; +TYLENOL 325MG325 MG; +ZOLOFT 25MG25 MG PO; +ZYPREXA2.5 MG PO
== END ==
LOC: ZCOL.LAB 22:07
DX: E11.59 Type 2 diabetes mellitus with other circulatory complications (principal)

== ENCOUNTER → 2019-07-12 | Outpatient (CLI) | payer MEDICARE, MEDICAID | LOC: ZCOL.LAB 06:53 | DX: R73.09 Other abnormal glucose (principal) ==

== ENCOUNTER → 2019-10-18 | Outpatient (CLI) | payer MEDICARE, MEDICAID | LOC: ZCOL.LAB 12:41 | DX: E11.22 Type 2 diabetes mellitus with diabetic chronic kidney disease (principal) ==

== ENCOUNTER → 2020-02-13 | Outpatient (CLI) | payer MEDICARE, MEDICAID | LOC: ZCOL.LAB 15:53 | DX: I12.9 Hypertensive chronic kidney disease with stage 1 through stage 4 chronic kidney disease, or unspecified chronic kidney disease (principal); E11.22 Type 2 diabetes mellitus with diabetic chronic kidney disease; R94.6 Abnormal results of thyroid function studies; J44.9 Chronic obstructive pulmonary disease, unspecified; N18.9 Chronic kidney disease, unspecified ==

== ENCOUNTER → 2020-03-03 | Outpatient (CLI) | payer MEDICARE, MEDICAID | LOC: ZCOL.LAB 11:20 | DX: E11.22 Type 2 diabetes mellitus with diabetic chronic kidney disease (principal); N18.3 Chronic kidney disease, stage 3 (moderate) ==

== ENCOUNTER → 2020-03-06 | Outpatient (CLI) | payer MEDICARE, MEDICAID | LOC: ZCOL.LAB 10:59 | DX: E11.22 Type 2 diabetes mellitus with diabetic chronic kidney disease (principal); E03.9 Hypothyroidism, unspecified ==

== ENCOUNTER → 2020-03-17 | Outpatient (CLI) | payer MEDICARE, MEDICAID ==
[2020-03-17 17:59] LABS: BASO # 0.1 (0.0-0.2); BASO % 1.8 % (0.0-2.0); EOS # 0.3 (0.0-0.7); EOS % 4.2 % (0-4.0); GRAN # 4.2 (1.4-6.5); GRAN % 63.7 % (42.2-75.2); HEMATOCRIT 39.3 % (37.0-47.0); HEMOGLOBIN 12.3 g/dl (12.5-16.0); LYMPH # 1.5 (1.2-3.4); LYMPH % 22.8 % (20.0-51.0); MEAN CELL VOLUME 96 fl (80.0-100.0); MEAN CORPUSCULAR HEMOGLOBIN 30 pg (27.0-31.0); MEAN CORPUSCULAR HGB CONC 31 g/dl (33.0-37.0); MEAN PLATELET VOLUME 9.2 fl (7.4-10.4); MONO # 0.5 (0.1-0.6); MONO % 7.2 % (1.7-9.3); PLATELET COUNT 282 K/mm3 (130-400); RED BLOOD COUNT 4.11 M/mm3 (4.10-5.30); REDCELL DISTRIBUTION WIDTH-CV 12.3 % (11.5-14.5)
[2020-03-17 18:09] LABS: ALBUMIN 3.5 gm/dL (3.5-5.0); BILIRUBIN,TOTAL 0.4 mg/dL (0.0-1.0); CALCIUM 9.6 mg/dL (8.4-10.2); CHOLESTEROL RISK RATIO 3.5; CREATININE, serum 1.64 (0.52-1.25); POTASSIUM 4.7 mmol/L (3.4-5.0); TOTAL PROTEIN 6.5 gm/dL (6.4-8.2)
[2020-03-17 18:39] LABS: THYROID STIMULATING HORMONE 2.06 uIU/mL (0.465-4.680)
== END ==
LOC: ZCOL.LAB 17:30
PROVIDERS: Internal Medicine
DX: E11.22 Type 2 diabetes mellitus with diabetic chronic kidney disease (principal); E03.9 Hypothyroidism, unspecified

== ENCOUNTER → 2020-07-22 | Outpatient (CLI) | payer MEDICARE, MEDICAID ==
[2020-07-22 11:30] LABS: BASO # 0.2 (0.0-0.2); BASO % 1.6 % (0.0-2.0); EOS # 0.7 (0.0-0.7); EOS % 6.4 % (0-4.0); GRAN # 7.2 (1.4-6.5); GRAN % 70.9 % (42.2-75.2); HEMATOCRIT 40.3 % (37.0-47.0); HEMOGLOBIN 12.9 g/dl (12.5-16.0); LYMPH # 1.5 (1.2-3.4); LYMPH % 14.2 % (20.0-51.0); MEAN CELL VOLUME 93 fl (80.0-100.0); MEAN CORPUSCULAR HEMOGLOBIN 30 pg (27.0-31.0); MEAN CORPUSCULAR HGB CONC 32 g/dl (33.0-37.0); MEAN PLATELET VOLUME 9.8 fl (7.4-10.4); MONO # 0.7 (0.1-0.6); MONO % 6.6 % (1.7-9.3); PLATELET COUNT 359 K/mm3 (130-400); RED BLOOD COUNT 4.34 M/mm3 (4.10-5.30); REDCELL DISTRIBUTION WIDTH-CV 12.3 % (11.5-14.5)
[2020-07-22 11:33] LABS: ALBUMIN 4.2 gm/dL (3.5-5.0); BILIRUBIN,TOTAL 0.4 mg/dL (0.0-1.0); CALCIUM 9.6 mg/dL (8.4-10.2); CREATININE, serum 1.68 (0.52-1.25); POTASSIUM 4.7 mmol/L (3.4-5.0); TOTAL PROTEIN 7.1 gm/dL (6.4-8.2)
[2020-07-22 12:03] LABS: THYROID STIMULATING HORMONE 1.51 uIU/mL (0.465-4.680)
== END ==
LOC: ZCOL.LAB 11:05
PROVIDERS: Internal Medicine
DX: I12.9 Hypertensive chronic kidney disease with stage 1 through stage 4 chronic kidney disease, or unspecified chronic kidney disease (principal); E11.22 Type 2 diabetes mellitus with diabetic chronic kidney disease; N18.9 Chronic kidney disease, unspecified

== ENCOUNTER → 2020-11-20 | Outpatient (CLI) | payer MEDICARE, MEDICAID | LOC: ZCOL.LAB 17:01 | DX: Z01.89 Encounter for other specified special examinations (principal) ==

== ENCOUNTER → 2020-12-01 | Outpatient (CLI) | payer MEDICARE, MEDICAID ==
[2020-12-01 12:21] LABS: CHOLESTEROL RISK RATIO 2.8
== END ==
LOC: ZCOL.LAB 12:01
PROVIDERS: Internal Medicine
DX: E78.5 Hyperlipidemia, unspecified (principal); E11.22 Type 2 diabetes mellitus with diabetic chronic kidney disease

== ENCOUNTER → 2021-08-06 | Outpatient (CLI) | payer MEDICARE, MEDICAID ==
[2021-08-06 15:57] LABS: BASO # 0.1 K/mm3 (0.0-0.2); BASO % 1.9 % (0.0-2.0); EOS # 0.9 K/mm3 (0.0-0.7); EOS % 12.2 % (0-4.0); GRAN # 4.3 K/mm3 (1.4-6.5); GRAN % 56.5 % (42.2-75.2); HEMATOCRIT 40.6 % (37.0-47.0); HEMOGLOBIN 12.6 g/dl (12.5-16.0); LYMPH # 1.7 K/mm3 (1.2-3.4); LYMPH % 23.1 % (20.0-51.0); MEAN CELL VOLUME 95 fl (80.0-100.0); MEAN CORPUSCULAR HEMOGLOBIN 30 pg (27.0-31.0); MEAN CORPUSCULAR HGB CONC 31 g/dl (33.0-37.0); MEAN PLATELET VOLUME 9.4 fl (7.4-10.4); MONO # 0.5 K/mm3 (0.1-0.6); PLATELET COUNT 317 K/mm3 (130-400); RED BLOOD COUNT 4.26 M/mm3 (4.10-5.30); REDCELL DISTRIBUTION WIDTH-CV 12.5 % (11.5-14.5)
[2021-08-06 16:14] LABS: ALBUMIN 3.9 gm/dL (3.4-4.8); BILIRUBIN,TOTAL 0.4 mg/dL (0.2-1.2); CALCIUM 9.3 mg/dL (8.4-10.2); CREATININE, serum 1.36 mg/dL (0.57-1.11); POTASSIUM 4.7 mmol/L (3.5-4.5); TOTAL PROTEIN 7.1 gm/dL (6.2-8.1)
[2021-08-06 16:34] LABS: THYROID STIMULATING HORMONE 2.495 uIU/mL (0.350-4.940)
== END ==
LOC: ZCOL.LAB 15:34
PROVIDERS: Family Medicine
DX: I12.9 Hypertensive chronic kidney disease with stage 1 through stage 4 chronic kidney disease, or unspecified chronic kidney disease (principal); E11.22 Type 2 diabetes mellitus with diabetic chronic kidney disease; N18.30 Chronic kidney disease, stage 3 unspecified; R94.6 Abnormal results of thyroid function studies

== ENCOUNTER → 2021-08-26 | Outpatient (CLI) | payer MEDICARE, MEDICAID | LOC: ZCOL.LAB 13:02 | DX: E78.5 Hyperlipidemia, unspecified (principal) ==

== ENCOUNTER 2021-09-25 13:32 | Emergency (ER) | payer MEDICARE, MEDICAID ==
[~2021-09-25] VITALS: Ht 121.9 cm; Wt 50.0 kg
[2021-09-25 16:10] LABS: BASO # 0.1 K/mm3 (0.0-0.2); EOS # 0.5 K/mm3 (0.0-0.7); EOS % 4.2 % (0.0-4.0); GRAN # 7.8 K/mm3 (1.4-6.5); GRAN % 71.9 % (42.2-75.2); HEMATOCRIT 37.7 % (37.0-47.0); HEMOGLOBIN 11.7 g/dl (12.5-16.0); LYMPH # 1.4 K/mm3 (1.2-3.4); LYMPH % 13.1 % (20.0-51.0); MEAN CELL VOLUME 96 fl (80.0-100.0); MEAN CORPUSCULAR HEMOGLOBIN 30 pg (27-31); MEAN CORPUSCULAR HGB CONC 31 g/dl (33.0-37.0); MEAN PLATELET VOLUME 9.3 fl (7.4-10.4); MONO % 9.4 % (1.7-9.3); PLATELET COUNT 280 K/mm3 (130-400); RED BLOOD COUNT 3.93 M/mm3 (4.10-5.30); REDCELL DISTRIBUTION WIDTH-CV 12.5 % (11.5-14.5)
[2021-09-25 16:21] LABS: ALBUMIN 3.6 gm/dL (3.4-4.8); BILIRUBIN,TOTAL 0.3 mg/dL (0.2-1.2); CALCIUM 8.9 mg/dL (8.4-10.2); CREATININE, serum 1.33 mg/dL (0.57-1.11); POTASSIUM 4.4 mmol/L (3.5-4.5)
[2021-09-25 17:20] VITALS: BP 104/64; PULSE 72; TEMP 98.7
== END 2021-09-25 17:20 | disposition home or self-care (01) ==
LOC: COL.ER 13:32
PROVIDERS: Family Medicine
DX: S00.03XA Contusion of scalp, initial encounter (principal); F32.A Depression, unspecified; Z79.899 Other long term (current) drug therapy; W19.XXXA Unspecified fall, initial encounter

== ENCOUNTER → 2021-09-27 | Outpatient (CLI) | payer MEDICARE, MEDICAID ==
[2021-09-27 12:49] LABS: COLLECTION METHOD CATHETER
[2021-09-27 12:59] LABS: MUCOUS Present (NOT PRESENT); PH 5 (5-8); SQUAMOUS EPITHELIAL 0-2 /hpf (0-10); URINE APPEARANCE Hazy (CLEAR/HAZY); URINE BACTERIA Many /hpf (NONE SEEN); URINE BILIRUBIN Negative (NEGATIVE); URINE BLOOD Negative (NEGATIVE); URINE COLOR Yellow (YELLOW); URINE GLUCOSE Negative (NEGATIVE); URINE KETONE Negative (NEGATIVE); URINE LEUKOCYTE ESTERASE Trace (NEGATIVE); URINE NITRATE Negative (NEGATIVE); URINE PROTEIN(semi-quant) Negative (NEGATIVE); URINE RBC 0-2 /hpf (0-2); URINE UROBILINOGEN Negative (NEGATIVE); URINE WBC 0-2 /hpf (0-2)
== END ==
LOC: ZCOL.LAB 12:46
PROVIDERS: Family Medicine
DX: N39.0 Urinary tract infection, site not specified (principal)